=== PATIENT | male | born 1950 ===

== ENCOUNTER 2020-08-08 12:24 | Outpatient (REF) | payer MEDICARE, SELFPAY ==
[2020-08-08 13:38] LABS: Alanine Aminotransferase 45 U/L (0-40); Anion Gap 13 (12-20); Aspartate Amino Transferase 45 U/L (5-37); Blood Urea Nitrogen 17 mg/dL (9-16); Calcium 9.4 mg/dL (8.4-10.2); Carbon Dioxide 28 mmol/L (22-29); Chloride 100 mmol/L (96-108); Cholesterol 136 mg/dL; Estimated Glomerular Filt Rate 52; Glucose Random 112 mg/dL (60-115); HDL Cholesterol 59 mg/dL; LDL Cholesterol Calculated 50 mg/dl; Potassium 4.6 mmol/l (3.3-5.1); Sodium 136 mmol/L (135-145); Triglycerides 136 mg/dL
== END 2020-08-08 12:25 | disposition home or self-care (01) ==
LOC: HO.LAB 12:24
PROVIDERS: Visit Provider Internal Medicine
DX: E78.5 Hyperlipidemia, unspecified (principal); I25.10 Atherosclerotic heart disease of native coronary artery without angina pectoris; I10 Essential (primary) hypertension
CPT/HCPCS: 80048; 80061; 84450; 84460

== ENCOUNTER 2021-02-20 10:57 | Outpatient (REF) | payer MEDICARE, SELFPAY ==
[2021-02-20 14:53] LABS: Alanine Aminotransferase 42 U/L (0-40); Anion Gap 14 (12-20); Aspartate Amino Transferase 46 U/L (5-37); Blood Urea Nitrogen 14 mg/dL (9-16); Calcium 9.4 mg/dL (8.4-10.2); Carbon Dioxide 23 mmol/L (22-29); Chloride 105 mmol/L (96-108); Cholesterol 125 mg/dL; Estimated Glomerular Filt Rate 54; Glucose Fasting 103 mg/dL (60-99); HDL Cholesterol 53 mg/dL; LDL Cholesterol Calculated 51 mg/dl; Potassium 4.7 mmol/L (3.3-5.1); Sodium 137 mmol/L (135-145); Triglycerides 109 mg/dL
== END 2021-02-20 10:58 | disposition home or self-care (01) ==
LOC: HO.HMGCLDS 10:57
PROVIDERS: PCP Internal Medicine; Visit Provider Internal Medicine
DX: E78.5 Hyperlipidemia, unspecified (principal); I10 Essential (primary) hypertension
CPT/HCPCS: 36415; 80048; 80061; 84450; 84460

== ENCOUNTER 2021-09-04 12:59 | Outpatient (REF) | payer MEDICARE, SELFPAY ==
[2021-09-04 13:35] LABS: MANUAL DIFF FLAG NO
[2021-09-04 14:35] LABS: Basophils Percent Auto 0.4 % (0-2); Eosinophils Absolute Auto 0.3 X10*3/uL (0.0-0.4); Eosinophils Percent Auto 3.7 % (0-4); Hematocrit 42.3 % (42.0-52.0); Hemoglobin 14.3 g/dl (14.0-18.0); Imm Gran Abs Auto 0.01 X10*3/uL (0.00-0.03); Imm Gran Pct Auto 0.1 % (0.0-0.4); Lymphocytes Absolute Auto 1.9 X10*3/uL (1.2-4.9); Lymphocytes Percent Auto 27.5 % (20-40); Mean Corpuscular HGB Conc 33.8 g/dl (31.0-36.0); Mean Corpuscular Hemoglobin 30.6 pg (27.0-33.0); Mean Corpuscular Volume 90.6 fL (80.0-98.0); Mean Platelet Volume 10.5 fL (9.4-12.4); Monocytes Absolute Auto 0.8 X10*3/uL (0.1-1.2); Neutrophils Absolute Auto 3.8 x10*3/uL (2.0-8.3); Neutrophils Percent Auto 56.3 % (45-73); Platelet Count 254 X10*3/uL (160-400); Red Blood Count 4.67 X10*6/uL (4.60-5.80); Red Cell Distribution Width 13.6 % (11.0-16.0); White Blood Count 6.8 X10*3/uL (4.8-10.8)
[2021-09-04 15:04] LABS: Alanine Aminotransferase 28 U/L (0-40); Anion Gap 11 (12-20); Aspartate Amino Transferase 35 U/L (5-37); Blood Urea Nitrogen 14 mg/dL (9-16); Calcium 9.3 mg/dL (8.4-10.2); Carbon Dioxide 26 mmol/L (22-29); Chloride 104 mmol/L (96-108); Cholesterol 131 mg/dL; Estimated Glomerular Filt Rate 56; Glucose Fasting 107 mg/dL (60-99); HDL Cholesterol 51 mg/dL; LDL Cholesterol Calculated 59 mg/dl; Potassium 4.3 mmol/L (3.3-5.1); Sodium 137 mmol/L (135-145); Triglycerides 108 mg/dL
== END 2021-09-04 13:00 | disposition home or self-care (01) ==
LOC: HO.LAB 12:59
PROVIDERS: PCP Internal Medicine; Visit Provider Internal Medicine
DX: E78.5 Hyperlipidemia, unspecified (principal); I10 Essential (primary) hypertension; D12.6 Benign neoplasm of colon, unspecified
CPT/HCPCS: 36415; 80048; 80061; 84450; 84460; 85025

== ENCOUNTER 2022-03-26 13:21 | Outpatient (REF) | payer MEDICARE, SELFPAY ==
[2022-03-26 14:36] LABS: Alanine Aminotransferase 27 U/L (0-40); Anion Gap 11 (12-20); Aspartate Amino Transferase 33 U/L (5-37); Blood Urea Nitrogen 17 mg/dL (9-16); Calcium 9.1 mg/dL (8.4-10.2); Carbon Dioxide 24 mmol/L (22-29); Chloride 104 mmol/L (96-108); Cholesterol 107 mg/dL; Estimated Glomerular Filt Rate 53; Glucose Fasting 110 mg/dL (60-99); HDL Cholesterol 49 mg/dL; LDL Cholesterol Calculated 44 mg/dl; Potassium 4.3 mmol/L (3.3-5.1); Sodium 135 mmol/L (135-145); Triglycerides 72 mg/dL
== END 2022-03-26 13:22 | disposition home or self-care (01) ==
LOC: HO.LAB 13:21
PROVIDERS: PCP Internal Medicine; Visit Provider Internal Medicine
DX: I25.2 Old myocardial infarction (principal); I25.10 Atherosclerotic heart disease of native coronary artery without angina pectoris; I10 Essential (primary) hypertension; E78.5 Hyperlipidemia, unspecified; R73.01 Impaired fasting glucose; Z95.5 Presence of coronary angioplasty implant and graft
CPT/HCPCS: 36415; 80048; 80061; 84450; 84460

== ENCOUNTER 2022-07-30 12:33 | Outpatient (REF) | payer MEDICARE, SELFPAY ==
[2022-07-30 12:51] LABS: MANUAL DIFF FLAG NO
[2022-07-30 13:39] LABS: Basophils Percent Auto 0.6 % (0-2); Eosinophils Absolute Auto 0.2 X10*3/uL (0.0-0.4); Eosinophils Percent Auto 2.2 % (0-4); Hemoglobin 13.3 g/dl (14.0-18.0); Imm Gran Abs Auto 0.02 X10*3/uL (0.00-0.03); Imm Gran Pct Auto 0.3 % (0.0-0.4); Lymphocytes Absolute Auto 1.2 X10*3/uL (1.2-4.9); Lymphocytes Percent Auto 18.3 % (20-40); Mean Corpuscular Hemoglobin 31.4 pg (27.0-33.0); Mean Corpuscular Volume 89.8 fL (80.0-98.0); Mean Platelet Volume 9.2 fL (9.4-12.4); Monocytes Absolute Auto 0.8 X10*3/uL (0.1-1.2); Monocytes Percent Auto 12.5 % (2-11); Neutrophils Absolute Auto 4.4 x10*3/uL (2.0-8.3); Neutrophils Percent Auto 66.1 % (45-73); Platelet Count 283 X10*3/uL (160-400); Red Blood Count 4.23 X10*6/uL (4.60-5.80); Red Cell Distribution Width 13.4 % (11.0-16.0); White Blood Count 6.7 X10*3/uL (4.8-10.8)
[2022-07-30 14:41] LABS: Estimated Average Glucose 111 mg/dL; Hemoglobin A1c % 5.5 %
[2022-07-30 14:45] LABS: Alanine Aminotransferase 37 U/L (0-40); Anion Gap 17 (12-20); Aspartate Amino Transferase 41 U/L (5-37); Blood Urea Nitrogen 20 mg/dL (9-16); Carbon Dioxide 24 mmol/L (22-29); Chloride 94 mmol/L (96-108); Cholesterol 154 mg/dL; Estimated Glomerular Filt Rate 44; Glucose Fasting 118 mg/dL (60-99); HDL Cholesterol 75 mg/dL; LDL Cholesterol Calculated 62 mg/dl; Potassium 5.1 mmol/L (3.3-5.1); Sodium 130 mmol/L (135-145); Triglycerides 86 mg/dL
== END 2022-07-30 12:34 | disposition home or self-care (01) ==
LOC: HO.LAB 12:33
PROVIDERS: Visit Provider Internal Medicine
DX: D12.6 Benign neoplasm of colon, unspecified (principal); I48.0 Paroxysmal atrial fibrillation; E78.5 Hyperlipidemia, unspecified; I10 Essential (primary) hypertension; R73.01 Impaired fasting glucose; K21.9 Gastro-esophageal reflux disease without esophagitis; I25.10 Atherosclerotic heart disease of native coronary artery without angina pectoris
CPT/HCPCS: 36415; 80048; 80061; 83036; 84450; 84460; 85025

== ENCOUNTER 2022-08-29 11:49 | Outpatient (REF) | payer MEDICARE, SELFPAY ==
[2022-08-29 15:03] LABS: Alanine Aminotransferase 17 U/L (0-40); Anion Gap 13 (12-20); Aspartate Amino Transferase 24 U/L (5-37); Blood Urea Nitrogen 11 mg/dL (9-16); Calcium 9.7 mg/dL (8.4-10.2); Carbon Dioxide 26 mmol/L (22-29); Chloride 105 mmol/L (96-108); Estimated Glomerular Filt Rate 51; Glucose Fasting 106 mg/dL (60-99); Potassium 4.7 mmol/L (3.3-5.1); Sodium 139 mmol/L (135-145)
== END 2022-08-29 11:50 | disposition home or self-care (01) ==
LOC: HO.LAB 11:49
PROVIDERS: PCP Internal Medicine; Visit Provider Internal Medicine
DX: E87.1 Hypo-osmolality and hyponatremia (principal); I10 Essential (primary) hypertension
CPT/HCPCS: 36415; 80048; 84450; 84460

== ENCOUNTER 2022-11-23 10:55 | Outpatient (REF) | payer MEDICARE, SELFPAY ==
[2022-11-23 11:14] LABS: MANUAL DIFF FLAG NO
[2022-11-23 12:11] LABS: Basophils Absolute Auto 0.1 X10*3/uL (0.0-0.2); Basophils Percent Auto 0.7 % (0-2); Eosinophils Absolute Auto 0.3 X10*3/uL (0.0-0.4); Eosinophils Percent Auto 3.4 % (0-4); Hematocrit 40.5 % (42.0-52.0); Hemoglobin 14.3 g/dl (14.0-18.0); Imm Gran Abs Auto 0.02 X10*3/uL (0.00-0.03); Imm Gran Pct Auto 0.3 % (0.0-0.4); Lymphocytes Absolute Auto 2.1 X10*3/uL (1.2-4.9); Lymphocytes Percent Auto 27.6 % (20-40); Mean Corpuscular HGB Conc 35.3 g/dl (31.0-36.0); Mean Corpuscular Hemoglobin 31.6 pg (27.0-33.0); Mean Corpuscular Volume 89.4 fL (80.0-98.0); Mean Platelet Volume 9.7 fL (9.4-12.4); Monocytes Absolute Auto 0.7 X10*3/uL (0.1-1.2); Monocytes Percent Auto 9.2 % (2-11); Neutrophils Absolute Auto 4.4 x10*3/uL (2.0-8.3); Neutrophils Percent Auto 58.8 % (45-73); Platelet Count 291 X10*3/uL (160-400); Red Blood Count 4.53 X10*6/uL (4.60-5.80); Red Cell Distribution Width 13.5 % (11.0-16.0); White Blood Count 7.4 X10*3/uL (4.8-10.8)
[2022-11-23 13:25] LABS: Alanine Aminotransferase 21 U/L (0-40); Anion Gap 15 (12-20); Aspartate Amino Transferase 32 U/L (5-37); Blood Urea Nitrogen 13 mg/dL (9-16); Carbon Dioxide 22 mmol/L (22-29); Chloride 102 mmol/L (96-108); Cholesterol 145 mg/dL; Estimated Glomerular Filt Rate 47; Glucose Fasting 108 mg/dL (60-99); HDL Cholesterol 61 mg/dL; LDL Cholesterol Calculated 62 mg/dl; Potassium 4.5 mmol/L (3.3-5.1); Sodium 134 mmol/L (135-145); Triglycerides 112 mg/dL
== END 2022-11-23 10:56 | disposition home or self-care (01) ==
LOC: HO.LAB 10:55
PROVIDERS: PCP Internal Medicine; Visit Provider Internal Medicine
DX: E78.5 Hyperlipidemia, unspecified (principal); I10 Essential (primary) hypertension; I25.10 Atherosclerotic heart disease of native coronary artery without angina pectoris; I48.0 Paroxysmal atrial fibrillation; K21.9 Gastro-esophageal reflux disease without esophagitis; R73.01 Impaired fasting glucose; Z87.898 Personal history of other specified conditions; Z92.29 Personal history of other drug therapy
CPT/HCPCS: 36415; 80048; 80061; 84450; 84460; 85025

== ENCOUNTER → 2023-01-07 13:46 | Outpatient (BNVA) | payer MEDICARE, SELFPAY | PROVIDERS: PCP Internal Medicine; Visit Provider Urology | DX: N40.1 Benign prostatic hyperplasia with lower urinary tract symptoms (principal); N13.8 Other obstructive and reflux uropathy; R35.1 Nocturia; Z12.5 Encounter for screening for malignant neoplasm of prostate; Z79.82 Long term (current) use of aspirin | CPT/HCPCS: 51798; 99202 ==

== ENCOUNTER 2023-01-16 11:15 | Outpatient (REF) | payer MEDICARE, SELFPAY ==
--- NOTE | ~2023-01-16 | US_ITS ---
EXAMINATION: US RETROPERITONEAL COMPLETE (RENAL) CLINICAL INFORMATION: Nocturia. COMPARISON: Ultrasound abdomen complete 08/03/2014. TECHNIQUE: Real-time imaging of the kidneys and bladder. FINDINGS: RIGHT KIDNEY: 11.6 x 5.0 x 5.6 cm (SAG x AP x TRV). The kidney is normal in size, contour, and echogenicity. Renal cortical thickness is normal. No calculi or focal parenchymal lesions. No hydronephrosis. LEFT KIDNEY: 12.3 x 4.9 x 6.5 cm (SAG x AP x TRV). The kidney is normal in size, contour, and echogenicity. Renal cortical thickness is normal. No calculi or focal parenchymal lesions. No hydronephrosis. BLADDER: Well distended and normal. Bilateral ureteral jets are demonstrated. Prevoid bladder volume is 194 mL. Postvoid bladder volume is 12 mL. The prostate volume is 42 mL. Dystrophic prostatic calcifications. US/US retroperitoneal comp IMPRESSION: Unremarkable sonographic appearance of the kidneys. Prostate is mildly enlarged.
== END 2023-01-16 11:16 | disposition home or self-care (01) ==
LOC: HO.HMGCX 11:15
PROVIDERS: PCP Internal Medicine; Visit Provider Urology
DX: R35.1 Nocturia (principal)
CPT/HCPCS: 76770

== ENCOUNTER 2023-02-20 12:35 | Outpatient (REF) | payer MEDICARE, SELFPAY ==
[2023-02-20 14:03] LABS: Cholesterol 138 mg/dL; HDL Cholesterol 62 mg/dL; LDL Cholesterol Calculated 63 mg/dl; Triglycerides 69 mg/dL
[2023-02-20 14:04] LABS: B Type Natriuretic Peptide 240 pg/mL (<100)
[2023-03-01 21:17] LABS: PSA, Ultra Sensitive 0.91 ng/mL
== END 2023-02-20 12:36 | disposition home or self-care (01) ==
LOC: HO.LAB 12:35
PROVIDERS: Absent Provider Internal Medicine Cardiovascular Disease; PCP Internal Medicine; Visit Provider Urology
DX: I25.118 Atherosclerotic heart disease of native coronary artery with other forms of angina pectoris (principal); Z12.5 Encounter for screening for malignant neoplasm of prostate
CPT/HCPCS: 36415; 80061; 83880; 84153

== ENCOUNTER 2023-02-21 13:25 | Outpatient (AMB) | payer MEDICARE, SELFPAY ==
--- NOTE | 2023-02-21 13:33 | A.OFFVIS_ITS ---
Intake Intake Visit Reasons: 6w/cysto/US(?) Intake Note: pt presents to the office today for a 6 week follow-up/cysto. Urinalysis done. Allergies No Known Allergies Allergy (Verified 02/21/23 13:33) Medication List - Last Reconciled 02/21/23 by Juhi Orona MD amlodipine 5 mg PO DAILY aspirin (Adult Low Dose Aspirin) 81 mg PO DAILY atorvastatin 80 mg PO DAILY 90 days carvedilol 25 mg PO BID clopidogrel 75 mg PO DAILY coenzyme Q10 (CoQ-10) 100 mg PO DAILY lisinopril 30 mg PO DAILY pantoprazole 40 mg PO DAILY tamsulosin (Flomax) 0.4 mg PO BID HPI HPI Comments History of Present Illness Details Brayden is a 72-year-old male patient who presents to the office for cystoscopy procedure. LV--01/07/23--Brayden is a 72-year-old male who presents to the office as a new patient evaluation for symptoms of nocturia. The patient is a 70-year-old male who was sent by his PCP for evaluation of nocturia. He has LUTS of spraying of urine, urinary urgency, and frequency. Denies blood in the urine I have reviewed the chart and his last PSA blood work in 2019 was reviewed. He states that he had more recent PSA blood work done at his PCP's office. We will contact his PCP office for updated PSA results. We discussed trial of alpha saturnino- alfuzosin 10 mg QD. 02/21/23-- HPI as above: The patient was taking alfuzosin 10 mg without any benefits. States no improvement in spraying of urine and other reported urinary symptoms. Evaluation today-- Blood: negative, leukocytes: negative. Cystoscopy findings-- minimal narrowing of the bulbous urethra proximally but no dense stricture visualized, enlargement of the lobes of the prostate. No evangelist picious bladder lesion visualized. Plan: Flomax 0.4 mg BID was ordered. Discontinue alfuzosin 10 mg. Follow-up after 3 months. COUNTS INCLUDE 234 BEDS AT THE [facility] Medical History Coronary artery disease Essential hypertension GERD (gastroesophageal reflux disease) History of [place] (myocardial infarction) History of syncope Hyperlipidemia LDL goal <70 Impaired fasting glucose Nocturia Paroxysmal atrial fibrillation Right bundle branch block (RBBB) with left anterior fascicular block Tubular adenoma of colon Surgical History (Updated 04/16/23 @ 10:47 by Isabel Russell RN) H/O heart artery stent History of discectomy Hx of colonoscopy Hx of wisdom tooth extraction Family History Mother Essential hypertension History of myocardial infarction Father Substance use disorder Sister Substance use disorder Social History Housing: House Alcohol intake: current Alcohol intake frequency: a few times a month Patient Tobacco Use Status: Former Tobacco user Years Smoked: 35 yrs e-Cigarette/Vaping Use: Never Used Are you DNR?: No Advance Directives: No Advance Directives Information Provided: Yes Current occupational status: retired Cognitive needs: No Hearing needs: No Vision needs: Yes Review of Systems Const All systems reviewed & are unremarkable except as noted in HPI and below Reports no additional complaints Eyes Reports no additional complaints ENT Denies neck pain Card Denies leg edema Resp Denies cough GI Denies constipation Musc Reports no additional complaints and Denies neck pain Skin/Breast Denies rash and Denies unusual bruising Neuro Reports no additional complaints Psych Reports no additional complaints Endo Reports no additional complaints Dirk/Lymph Reports no additional complaints Aller/Immun Reports no additional complaints Physical Exam Const General: healthy appearing, no acute distress and well developed Orientation/consciousness: patient oriented x3 HEENT Head: Yes normocephalic and Yes atraumatic Eyes Conjunctivae: conjunctivae normal Neck Neck: Yes normal visual inspection Chest Chest palpation & inspection: normal inspection of the chest Resp Effort & Inspection: normal respiratory effort Cardio Rate: regular rate GI Inspection: Yes normal to inspection Penis: normal penis Scrotum: scrotum normal Skin General skin exam: no rashes or lesions noted Neuro General: patient oriented x3 Extrem General: No pedal edema Psych Appearance: grossly normal Affect: normal affect Office Procedures Cystoscopy Consent Discussed risk and benefit or proposed procedure with the patient. Information consent for procedure given to the patient. Discussed technical aspects, risks, benefits and alternatives in full. Addressed all of the patient's questions and concerns regarding the procedure. The patient demonstrated knowledge and understanding. They wish to proceed with this procedure. Preparation The patient was prepped in the usual manner. A project estimator was present and in the room. Genitalia was prepped with betadine solution in a sterile manner. Lidocaine Jelly 2% was placed into the urethra and 16Fr flexible Olympus cystoscope was inserted into the meatus after adequate lubrication. Procedure Time out per protocol performed. Bladder Inspection Bladder Inspection: The bladder was inspected in its entirety with utilization retroflexion displaying: Tumor(s): none visualized Trabeculation: Mild/mod Mucosal Erthema: N/A Orifices: normal shape and position Urethra:see below Cystoscopy findings-- minimal narrowing of the bulbous urethra proximally and no dense stricture visualized, enlargement of the lobes of the prostate. No suspicious bladder lesion visualized. [id number] Procedure code (CPT) selection complete Office Meds lidocaine HCl Performing Provider: Juhi Orona MD Administered by: Yanni Zapien RN on 02/21/23 13:46 Dose Route Admin Location Lot Number Expiration Date [facility] Exhibits Manager 10 mL intra-urethral naproxen Performing Provider: Juhi Orona MD Administered by: Yanni Zapien RN on 02/21/23 13:46 Dose Route Admin Location Lot Number Expiration Date [place] Ex[employer] Manager 500 mg PO ciprofloxacin HCl Performing Provider: Juhi Orona MD Documented (not given) by: Yanni Zapien RN on 02/21/23 13:46 Dose Route Admin Location Lot Number Expiration Date [facility] Ex[employer] 500 mg PO Results AMB Urinalysis, Automated UA Leukoctes 0 Pieter/uL Last Edit by Shira Madison MA on 02/21/23 13:35 UA Nitrite Negative Last Edit by Shira Madison MA on 02/21/23 13:35 UA Urobilinogen 0.2 mg/dL Last Edit by Shira Madison MA on 02/21/23 13:35 UA Protein 0 mg/dL Last Edit by Shira Madison MA on 02/21/23 13:35 UA pH 6.0 Last Edit by Shira Madison MA on 02/21/23 13:35 UA Blood 0 Kimo/uL Last Edit by Shira Madison MA on 02/21/23 13:35 UA Specific [place] 1.010 Last Edit by Shira Madison MA on 02/21/23 13:35 UA Ketone Negative Last Edit by Shira Madison MA on 02/21/23 13:35 UA Bilirubin 0 mg/dL Last Edit by Shira Madison MA on 02/21/23 13:35 UA Glucose 0 mg/dL Last Edit by Shira Madison MA on 02/21/23 13:35 Results Reviewed Results Reviewed: Laboratory Last Values Urine pH (Auto) 6.0 02/21/23 13:34 Specific [place] (Auto) 1.010 02/21/23 13:34 Urine Protein (Auto) 0 mg/dL 02/21/23 13:34 Glucose (UA)(Auto) 0 mg/dL 02/21/23 13:34 Urine Ketones (Auto) Negative 02/21/23 13:34 Urine Blood (Auto) 0 Kimo/uL 02/21/23 13:34 Urine Nitrite (Auto) Negative 02/21/23 13:34 Urine Bilirubin (Auto) 0 mg/dL 02/21/23 13:34 Urine Urobilinogen (Auto) 0.2 mg/dL 02/21/23 13:34 Leukocyte Esterase (Auto) 0 Pieter/uL 02/21/23 13:34 Assessment & Plan Assessment & Plan (1) Nocturia: Code(s): R35.1 - Nocturia (2) BPH loc w urin obs/LUTS: Code(s): N40.1 - Benign prostatic hyperplasia with lower urinary tract symptoms (3) Weak urinary stream: Code(s): R39.12 - Poor urinary stream Plan Flomax 0.4 mg BID was ordered. Discontinue alfuzosin 10 mg. Follow-up after 3 months. Orders: Orders AMB Cystoscopy 02/21/23 R35.1 - Nocturia, Z12.5 - Encounter for screening for malignant neoplasm of prostate AMB Urinalysis Automated 02/21/23 Z13.9 - Encounter for screening, unspecified Medications: New ciprofloxacin HCl 500 mg PO ONCE 1 tab 0RF R35.1 - Nocturia, Z12.5 - Encounter for screening for malignant neoplasm of prostate tamsulosin (Flomax) flomax 2 times daily to replace alfuzosin 0.4 mg PO BID 60 caps 4RF Patient Instructions: The patient had an opportunity to ask questions regarding treatment plan. All questions were answered. Laboratory studies and physical exam results were discussed and reviewed in detail. No major barriers to understanding were identified. The patient expressed understanding and agreement with the above treatment plan. The patient is aware they should contact our office by phone for worsening of their current condition or the appearance of new symptoms. Compliance is encouraged with any medications and followup testing that is ordered. It is a privilege to be allowed the opportunity to participate in the urologic care of your patient. If you have any questions or concerns regarding treatment for the above conditions please do not hesitate to contact me. The office telephone contact is [phone]. This note is constructed in part using voice recognition software. While every effort has been made to ensure accuracy mill representative errors may have been included. Yours sincerely, Juhi Orona MD Coding Level of Care Code Est Pt Level 3 (52963) Diagnoses Nocturia R35.1 BPH loc w urin obs/LUTS N40.1 Weak urinary stream R39.12 CPT Codes Cystoscopy - CPT: 10007-[id number] ([id number])
== END 2023-02-21 14:13 | disposition home or self-care (01) ==
LOC: HO.HUSH 13:25
PROVIDERS: PCP Internal Medicine; Visit Provider Urology
DX: N40.1 Benign prostatic hyperplasia with lower urinary tract symptoms (principal); R35.1 Nocturia; R39.12 Poor urinary stream; Z12.5 Encounter for screening for malignant neoplasm of prostate
CPT/HCPCS: 52000; 99213

== ENCOUNTER → 2023-02-21 13:25 | Outpatient (BNVA) | payer MEDICARE, SELFPAY | PROVIDERS: PCP Internal Medicine; Visit Provider Urology | DX: N40.1 Benign prostatic hyperplasia with lower urinary tract symptoms (principal); R35.1 Nocturia; R39.12 Poor urinary stream | CPT/HCPCS: 52000; 99212 ==

== ENCOUNTER 2023-04-16 10:18 | Day surgery (SDC) | payer MEDICARE, SELFPAY ==
[2023-04-16 10:22] VITALS: BMI 30.1
[2023-04-16 10:26] VITALS: BMI 29.2
[2023-04-16 10:38] VITALS: BP 122/90; PULSE 68; RESP 20; TEMP 36.8; O2SAT 98
--- NOTE | 2023-04-16 10:58 | P.CONAN_ITS ---
HPI - Anesthesia Eval Consult details Narrative: Colonoscopy [facility] Active Problems Active Problems: All Active Problems (Updated 01/07/23 @ 14:29 by Kylah Bhagat) Screening PSA (prostate specific antigen) (Acute) BPH loc w urin obs/LUTS (Acute) Nocturia (Acute) History of syncope (Acute) Paroxysmal atrial fibrillation (Acute) Hyperlipidemia LDL goal <70 (Acute) Essential hypertension (Acute) Right bundle branch block (RBBB) with left anterior fascicular block (Acute) Impaired fasting glucose (Acute) GERD (gastroesophageal reflux disease) (Acute) History of [place] (myocardial infarction) (Acute) H/O heart artery stent (Acute) Coronary artery disease (Acute) Tubular adenoma of colon (Acute) Past Medical History Medical History Coronary artery disease Essential hypertension GERD (gastroesophageal reflux disease) History of [place] (myocardial infarction) History of syncope Hyperlipidemia LDL goal <70 Impaired fasting glucose Nocturia Paroxysmal atrial fibrillation Right bundle branch block (RBBB) with left anterior fascicular block Tubular adenoma of colon Family History Family History Mother Essential hypertension History of myocardial infarction Father Substance use disorder Sister Substance use disorder Family history of problems with anesthesia: No Surgical History Surgical History (Updated 04/16/23 @ 10:47 by Isabel Russell RN) H/O heart artery stent History of discectomy Hx of colonoscopy Hx of wisdom tooth extraction History of Problems with Anesthesia: No Social History Social History Housing: House Alcohol intake: current Alcohol intake frequency: a few times a month Patient Tobacco Use Status: Former Tobacco user Years Smoked: 35 yrs e-Cigarette/Vaping Use: Never Used Are you DNR?: No Advance Directives: No Advance Directives Information Provided: Yes Current occupational status: retired Cognitive needs: No Hearing needs: No Vision needs: Yes Meds Allergies Allergy/AdvReac Type Severity Reaction Status Date / Time No Known Allergies Allergy Verified 02/21/23 13:33 Home Medications Medication Instructions Recorded Confirmed Last Taken Type aspirin 81 mg tablet,delayed 81 mg PO DAILY 02/22/21 04/16/23 04/08/23 History release (Adult Low Dose Aspirin) coenzyme Q10 100 mg capsule 100 mg PO DAILY 02/22/21 04/16/23 04/08/23 History (CoQ-10) amlodipine 5 mg tablet 5 mg PO DAILY 03/29/22 04/16/23 04/16/23 History carvedilol 25 mg tablet 25 mg PO BID 03/29/22 04/16/23 04/16/23 History Exam Exam Date and Time: April 16, 2023 1058 Height,Weight and Vital Signs: Height 5 ft 9 in Weight 89.811 kg Last Vital Signs Temp 98.3 F 04/16/23 10:38 Pulse 68 04/16/23 10:38 Resp 20 04/16/23 10:38 BP 122/90 H 04/16/23 10:38 Pulse Ox 98 04/16/23 10:38 O2 Del Method Room Air 04/16/23 10:38 Airway Mallampati Class: II TM Dist: >3cm Neck ROM: Full Heart: rrr Lungs: cta Assessment and Plan Assessment Anesthesia Assessment: Anesthesia Plan Discussed and Chart Reviewed Final Anesthetic Review Family History of Problems with Anesthesia: No History of Problems with Anesthesia: No ASA Class: III Final Preanesthetic Review: No Changes in Pt Med Stat, Meds/Allgs Chart Reviewed, Consent Obtained/Reviewed and Anes Risks/Benef Reviewed Patient Risk: Intermediate Procedure Risk: Low Anesthetic Plan Anesthetic Plan: MAC: and Agree w/ Assess. and Plan Disposition: Standard PACU
[2023-04-16] MEDS: Lactated Ringers 1,000 ML 50 ML IVCONT (11:00)
--- NOTE | 2023-04-16 11:43 | MHC.SHP ---
Pre-Procedural Eval Section A Date of Service: 04/16/23 Section B Chief Complaint: screening Details of Present Illness: see H&P no changes Relevant Family History (Specify if Yes): No Relevant Social History: Tobacco Use Present Medications: see Short Stay Collaborative assessment Medical History: No relevant PMH History of Previous Operations: No relevant previous surgery Allergies: Allergies Allergy/AdvReac Type Severity Reaction Status Date / Time No Known Allergies Allergy Verified 02/21/23 13:33 Review of Systems Sugical H&P ROS: Negative: Constitution, Cardiovascular, Respiratory, Neurological, Psychiatric, Hem-Onc, Allergic/Immunologic, Gastrointestinal, Genitourinary, Musculoskeletal, Integumentary, Endocrine and Eyes/Ears/Nose/Throat Exam Surgical H&P Exam: Normal: HEENT, Normal: Heart, Normal: Lungs, Normal: Extremities, Normal: Abdomen, Normal: Skin and Normal: Neurological Plan Diagnosis/Plan: Unchanged I have reviewed the history and physical and performed a pertinent physical examination on my patient. No changes have occurred unless specified. Time Spent With Patient Time: Total time managing care of this patient today ____ minutes.
--- NOTE | 2023-04-16 12:19 | P.BOP_ITS ---
Brief Operative Note Date of Service: 04/16/23 Pre-op diagnosis: screening Post-op diagnosis: same Procedure: colonoscopy Surgeon: Guerrero Vizcarra Anesthesia: MAC Was an Java Application Engineer used for this Procedure?: No Estimated blood loss (mL): 2 Pathology: other Condition: stable Disposition: PACU
[2023-04-16 12:23] VITALS: BP 102/68; PULSE 64; RESP 18; TEMP 36.1; O2SAT 95
[2023-04-16 12:38] VITALS: BP 127/79; PULSE 58; RESP 16; TEMP 36.1; O2SAT 99
--- NOTE | 2023-04-16 13:06 | OP_ITS ---
DATE OF SERVICE: 04/16/2023 SURGEON: Guerrero Vizcarra MD INDICATIONS: Colon cancer screening. PREOPERATIVE DIAGNOSIS: POSTOPERATIVE DIAGNOSIS: PROCEDURE PERFORMED: Colonoscopy to the terminal ileum with biopsy. ESTIMATED BLOOD LOSS: COMPLICATIONS: ANESTHESIA: Monitored anesthesia care. ASSISTANTS: SPECIMENS: DESCRIPTION OF PROCEDURE: A history and physical was performed. The risks and benefits of the procedure were explained to the patient. Informed consent was obtained. The patient was placed in the left lateral decubitus position. A digital rectal exam was performed and was found to be normal. The Olympus pediatric video colonoscope was introduced into the rectum and advanced to the cecum without difficulty. The cecum was identified by transillumination, palpation, and identification of ileocecal valve. Examination was performed. The scope was removed. He tolerated the procedure well and was returned to the recovery area in stable condition. FINDINGS: The terminal ileum was normal. In the cecum right at the appendiceal orifice was a less than 5 mm sessile polyp, which was removed with a biopsy forceps. Two rectal polyps were removed with a biopsy forceps and a polyp at 80 cm measuring less than 5 mm was also removed with a biopsy forceps. Retroflexed examination showed some internal hemorrhoids. There was moderate sigmoid diverticulosis. IMPRESSION: Colon polyps. RECOMMENDATION: Follow up the biopsy results. MD OZZY Street/NADYAL / [id number]
== END 2023-04-16 13:50 | disposition home or self-care (01) ==
PROVIDERS: PCP Internal Medicine; Visit Provider Internal Medicine Gastroenterology
PROC: 0DJD8ZZ Inspection of Lower Intestinal Tract, Via Natural or Artificial Opening Endoscopic (ICD-10-PCS; CPT 45378; principal; 2023-04-16 11:20)
DX: Z12.11 Encounter for screening for malignant neoplasm of colon (principal); Z86.010 Personal history of colon polyps; K63.5 Polyp of colon; K62.1 Rectal polyp; K57.30 Diverticulosis of large intestine without perforation or abscess without bleeding; K64.8 Other hemorrhoids; I10 Essential (primary) hypertension; I45.2 Bifascicular block; I25.2 Old myocardial infarction; I48.0 Paroxysmal atrial fibrillation; I25.10 Atherosclerotic heart disease of native coronary artery without angina pectoris; Z95.5 Presence of coronary angioplasty implant and graft; E78.5 Hyperlipidemia, unspecified; R73.01 Impaired fasting glucose; Z79.82 Long term (current) use of aspirin; Z79.899 Other long term (current) drug therapy; Z87.891 Personal history of nicotine dependence
CPT/HCPCS: 45380; 88305

== ENCOUNTER 2023-05-27 11:29 | Outpatient (AMB) | payer MEDICARE, SELFPAY ==
--- NOTE | 2023-05-27 11:25 | A.OFFVIS_ITS ---
Intake Intake Visit Reasons: 14w/BPH Intake Note: Patient presents today for a follow-up on BPH: Meds- Tamsulosin Allergies to Antibiotic- No Known Allergies Blood Thinner- Aspirin PVR- 0 mL Toe Former Stitchdowns Required: No Allergies No Known Allergies Allergy (Verified 02/21/23 13:33) Medication List - Last Reconciled 05/27/23 by Juhi Orona MD amlodipine 5 mg PO DAILY aspirin (Adult Low Dose Aspirin) 81 mg PO DAILY atorvastatin 80 mg PO DAILY 90 days carvedilol 25 mg PO BID clopidogrel 75 mg PO DAILY coenzyme Q10 (CoQ-10) 100 mg PO DAILY lisinopril 30 mg PO DAILY oxybutynin chloride 5 mg PO BEDTIME pantoprazole 40 mg PO DAILY tamsulosin (Flomax) 0.4 mg PO BID HPI HPI Comments History of Present Illness Details Brayden is a 72-year-old male who presents today to the office for a fol low-up. 05/27/2023? He is followed today for benign prostatic hyperplasia and LUTS frequency. He was last seen by me on 02/21/2023 - cystoscopy was performed- findings minimal narrowing of the bulbous urethra proximally but no dense stricture visualized, enlargement of the lobes of the prostate. No suspicious bladder lesion visualized.? ? Flomax 0.4 mg BID was ordered, and the patient was advised to discontinue alfuzosin 10 mg at that time. He was advised to follow-up after 3 months. He states that he is waking up every hour to urinate at night. He still has intermittent spraying of urine. Denies daytime urinary frequency, I reviewed the PSA results from 02/20/2023 revealed 0.91 ng/mL. I reviewed the renal US results from 01/16/2023 revealed both the kidneys were normal, no stones or hydronephrosis. Estimated prostate volume was 42 mL, and prostate calcification was visualized. 05/27/2023: Evaluation ?UA? leukocytes: 15 Pieter; blood: negative; bladder scan PVR: 0 mL. Review of charts: Last visit: 03/13/2023? OV--01/07/23--Brayden is a 72-year-old male who presents to the office as a new patient evaluation for symptoms of nocturia. The patient is a 70-year-old male who was sent by his PCP for evaluation of nocturia. He has LUTS of spraying of urine, urinary urgency, and frequency. Denies blood in the urine I have reviewed the chart and his last PSA blood work in 2019 was reviewed. He states that he had more recent PSA blood work done at his PCP's office. We will contact his PCP office for updated PSA results. We discussed trial of alpha saturnino- alfuzosin 10 mg QD. OV-02/21/23--? HPI as above:? The patient was taking alfuzosin 10 mg without any benefits.? States no improvement in spraying of urine and other reported urinary symptoms.? Evaluation today-- Blood: negative, leukocytes: negative. Cystoscopy findings-- minimal narrowing of the bulbous urethra proximally but no dense stricture visualized, enlargement of the lobes of the prostate. No suspicious bladder lesion visualized.? ? 05/27/2023: Plan: Nocturia: Pt states he snores. Consideration for Sleep Apnea contributing to nocturia. I will refer him for sleep study. Will start him on Oxybutynin 5 mg in the evening. Cont Flomax bid Follow up Tele-health in 3 months. Follow up in one year, PSA prior. [facility] Medical History Nocturia History of syncope Paroxysmal atrial fibrillation Hyperlipidemia LDL goal <70 Essential hypertension Right bundle branch block (RBBB) with left anterior fascicular block Impaired fasting glucose GERD (gastroesophageal reflux disease) History of [place] (myocardial infarction) Coronary artery disease Tubular adenoma of colon Surgical History Hx of wisdom tooth extraction Hx of colonoscopy H/O heart artery stent History of discectomy Family History Mother Essential hypertension History of myocardial infarction Father Substance use disorder Sister Substance use disorder Social History Housing: House Alcohol intake: current Alcohol intake frequency: a few times a month Patient Tobacco Use Status: Former Tobacco user Years Smoked: 35 yrs e-Cigarette/Vaping Use: Never Used Current occupational status: retired Cognitive needs: No Hearing needs: No Vision needs: Yes Review of Systems Const All systems reviewed & are unremarkable except as noted in HPI and below Reports no additional complaints Eyes Reports no additional complaints ENT Denies neck pain Card Denies leg edema Resp Denies cough GI Denies constipation Musc Reports no additional complaints and Denies neck pain Skin/Breast Denies rash and Denies unusual bruising Neuro Reports no additional complaints Psych Reports no additional complaints Endo Reports no additional complaints Dirk/Lymph Reports no additional complaints Aller/Immun Reports no additional complaints Physical Exam Const General: healthy appearing, no acute distress and well developed Orientation/consciousness: patient oriented x3 HEENT Head: Yes normocephalic and Yes atraumatic Eyes Conjunctivae: conjunctivae normal Neck Neck: Yes normal visual inspection Chest Chest palpation & inspection: normal inspection of the chest Resp Effort & Inspection: normal respiratory effort Cardio Rate: regular rate GI Inspection: Yes normal to inspection Neuro General: patient oriented x3 Psych Appearance: grossly normal Affect: normal affect Results AMB Urinalysis, Automated UA Leukoctes 100 Pieter/uL Last Edit by ALY Walker on 05/27/23 11:46 15 Pieter/uL Taryn Rivas 05/27/23 11:46 UA Nitrite Negative Last Edit by ALY Walker on 05/27/23 11:46 UA Urobilinogen 100 mg/dL Last Edit by ALY Walker on 05/27/23 11:4 6 1 mg/dL Taryn Rivas 05/27/23 11:46 UA Protein 100 mg/dL Last Edit by ALY Walker on 05/27/23 11:46 30 mg/dL Taryn Rivas 05/27/23 11:46 UA pH 6.0 Last Edit by ALY Walker on 05/27/23 11:46 UA Blood 0 Kimo/uL Last Edit by ALY Walker on 05/27/23 11:46 UA Specific [place] 1.020 Last Edit by ALY Walker on 05/27/23 11: 46 UA Ketone Positive Last Edit by ALY Walker on 05/27/23 11:46 5 mg/dL Taryn Rivas 05/27/23 11:46 UA Bilirubin 100 mg/dL Last Edit by ALY Walker on 05/27/23 11:46 1 mg/dL Taryn Rivas 05/27/23 11:46 UA Glucose 0 mg/dL Last Edit by ALY Walker on 05/27/23 11:46 Results Reviewed Results Reviewed: Laboratory Last Values Urine pH (Auto) 6.0 05/27/23 11:43 Specific [place] (Auto) 1.020 05/27/23 11:43 Urine Protein (Auto) 100 mg/dL 05/27/23 11:43 Glucose (UA)(Auto) 0 mg/dL 05/27/23 11:43 Urine Ketones (Auto) Positive 05/27/23 11:43 Urine Blood (Auto) 0 Kimo/uL 05/27/23 11:43 Urine Nitrite (Auto) Negative 05/27/23 11:43 Urine Bilirubin (Auto) 100 mg/dL 05/27/23 11:43 Urine Urobilinogen (Auto) 100 mg/dL 05/27/23 11:43 Leukocyte Esterase (Auto) 100 Pieter/uL 05/27/23 11:43 01/16/2023 EXAMINATION: US RETROPERITONEAL COMPLETE (RENAL) CLINICAL INFORMATION: Nocturia. COMPARISON: Ultrasound abdomen complete 08/03/2014. FINDINGS: RIGHT KIDNEY: 11.6 x 5.0 x 5.6 cm (SAG x AP x TRV). The kidney is normal in size, contour, and echogenicity. Renal cortical thickness is normal. No calculi or focal parenchymal lesions. No hydronephrosis. LEFT KIDNEY: 12.3 x 4.9 x 6.5 cm (SAG x AP x TRV). The kidney is normal in size, contour, and echogenicity. Renal cortical thickness is normal. No calculi or focal parenchymal lesions. No hydronephrosis. BLADDER: Well distended and normal. Bilateral ureteral jets are demonstrated. Prevoid bladder volume is 194 mL. Postvoid bladder volume is 12 mL. The prostate volume is 42 mL. Dystrophic prostatic calcifications. IMPRESSION: Unremarkable sonographic appearance of the kidneys. Prostate is mildly enlarged. Assessment & Plan Assessment & Plan (1) Nocturia: Code(s): R35.1 - Nocturia (2) BPH loc w urin obs/LUTS: Code(s): N40.1 - Benign prostatic hyperplasia with lower urinary tract symptoms (3) Urethral stricture: Code(s): N35.919 - Unspecified urethral stricture, male, unspecified site Plan Nocturia: Pt states he snores. Consideration for Sleep Apnea contributing to nocturia. I will refer him for sleep study. Will start him on Oxybutynin 5 mg in the evening. Cont Flomax bid Follow up Tele-health in 3 months. Follow up in one year, PSA prior. Orders: Orders AMB Urinalysis Automated Today Z13.9 - Encounter for screening, unspecified AMB Post Void Residual by ultrasound Today N39.8 - Other specified disorders of urinary system Medications: New oxybutynin chloride 5 mg PO BEDTIME 90 tabs 0RF bladder spasms Refilled tamsulosin (Flomax) flomax 2 times daily to replace alfuzosin 0.4 mg PO BID 60 caps 4RF Patient Instructions: The patient had an opportunity to ask questions regarding treatment plan. All questions were answered. Imaging, Laboratory studies and physical exam results were discussed and reviewed in detail. No major barriers to understanding were identified. The patient expressed understanding and agreement with the above treatment plan.? ? ? The patient is aware they should contact our office by phone for worsening of their current condition or the appearance of new symptoms. Compliance is encouraged with any medications and followup testing that is ordered.? ? ? It is a privilege to be allowed the opportunity to participate in the urologic care of your patient. If you have any questions or concerns regarding treatment for the above conditions please do not hesitate to contact me. The office telephone contact is [phone].? ? ? This note is constructed in part using voice recognition software. While every effort has been made to ensure accuracy senior medical transcriptionist errors may have been included.? ? ? Yours sincerely,? ? ? Juhi Orona MD? ? ? Coding Level of Care Code Est Pt Level 4 (13111) Diagnoses Nocturia R35.1 BPH loc w urin obs/LUTS N40.1 Urethral stricture N35.919
== END 2023-05-27 11:58 | disposition home or self-care (01) ==
PROVIDERS: PCP Internal Medicine; Visit Provider Urology
DX: N40.1 Benign prostatic hyperplasia with lower urinary tract symptoms (principal); R35.1 Nocturia; N35.919 Unspecified urethral stricture, male, unspecified site
CPT/HCPCS: 99214

== ENCOUNTER → 2023-05-27 11:29 | Outpatient (BNVA) | payer MEDICARE, SELFPAY | PROVIDERS: PCP Internal Medicine; Visit Provider Urology | DX: N40.1 Benign prostatic hyperplasia with lower urinary tract symptoms (principal); N13.8 Other obstructive and reflux uropathy; R35.1 Nocturia; N35.919 Unspecified urethral stricture, male, unspecified site; Z79.899 Other long term (current) drug therapy | CPT/HCPCS: 81003; 99212 ==

== ENCOUNTER 2024-01-23 12:52 | Outpatient (REF) | payer MEDICARE, SELFPAY ==
[2024-01-23 14:11] LABS: Estimated Average Glucose 111 mg/dL; Hemoglobin A1c % 5.5 % (<6.0)
[2024-01-23 14:35] LABS: Alanine Aminotransferase 23 U/L (0-40); Anion Gap 16 (12-20); Aspartate Amino Transferase 29 U/L (5-37); Blood Urea Nitrogen 14 mg/dL (9-16); Calcium 9.6 mg/dL (8.4-10.2); Carbon Dioxide 24 mmol/L (22-29); Chloride 100 mmol/L (96-108); Cholesterol 130 mg/dL (<200); Estimated Glomerular Filt Rate 50; Glucose Fasting 102 mg/dL (60-99); HDL Cholesterol 65 mg/dL (>40); LDL Cholesterol Calculated 56 mg/dL (<100); Potassium 3.5 mmol/L (3.3-5.1); Sodium 136 mmol/L (135-145); Triglycerides 46 mg/dL (<150)
[2024-01-23 14:50] LABS: Vitamin D 25-OH Total 29.3 ng/mL (>30)
== END 2024-01-23 12:53 | disposition home or self-care (01) ==
LOC: HO.LAB 12:52
PROVIDERS: PCP Internal Medicine; Visit Provider Internal Medicine
DX: I10 Essential (primary) hypertension (principal); R73.01 Impaired fasting glucose; I25.10 Atherosclerotic heart disease of native coronary artery without angina pectoris; E78.5 Hyperlipidemia, unspecified
CPT/HCPCS: 36415; 80048; 80061; 82306; 83036; 84450; 84460

== ENCOUNTER 2024-02-05 10:28 | Outpatient (AMB) | payer MEDICARE, SELFPAY ==
--- NOTE | 2024-02-05 10:30 | MHC.PC.OV ---
Vital Signs 02/05/24 10:31 02/05/24 11:19 Height 5 ft 9 in Weight 195 lb BMI 28.8 BP 102/66 Blood Pressure Location Lt brachial Position Sitting Pulse 64 64 Pulse Source Pulse Oximeter Auscultation Pulse Oximetry (%) 97 Oxygen Delivery Method Room Air Intake Visit Reasons: HDF [facility] Intake Note: Pt is here today for his [facility]F [facility] Allergies No Known Allergies Allergy (Verified 02/05/24 10:57) Medication List - Last Reconciled 02/05/24 by TANA Jimenez amlodipine 5 mg PO DAILY aspirin (Adult Low Dose Aspirin) 81 mg PO DAILY atorvastatin 80 mg PO DAILY 90 days carvedilol 25 mg PO BID clopidogrel 75 mg PO DAILY pantoprazole 40 mg PO DAILY tamsulosin (Flomax) 0.4 mg PO BID Tobacco use date assessed: 02/05/24 Fall risk assessment: No Falls in past year Last assessed Fall Risk: 02/05/24 Dental Screening Dental Screen Date: 02/05/24 Did you have a dental visit in the last 12 months?: No Was dental information given to patient?: Patient declined HPI HPI Comments History of Present Illness Details Patient is a 73-year-old male in today following a hospital discharge 2 months prior. He has a past medical history significant for BPH, dyslipidemia, gastroenteritis, hypertension, history of [place], history of TIA, CAD, and proximal AFib. Patient presented to the emergency room with symptoms of diarrhea and weakness. Patient was found to have FABIENNE due to hypotension/hypovolemia. His lisinopril was stopped, creatinine levels brought down to baseline and was discharged with directions to completely discontinue his lisinopril. Patients had labs drawn prior to this visit. Patient has normal electrolytes, slightly diminished vitamin-D levels, slightly elevated fasting blood sugar. Patient's kidney values have improved from previous blood draw. He has a chief complaint of right-sided inguinal pain gets worse when he feels like his bladder is full. States the pain has been active for 3-4 days. Has not utilized any medication for relief. [facility] Medical History Nocturia History of syncope Paroxysmal atrial fibrillation Hyperlipidemia LDL goal <70 Essential hypertension Right bundle branch block (RBBB) with left anterior fascicular block Impaired fasting glucose GERD (gastroesophageal reflux disease) History of [place] (myocardial infarction) Coronary artery disease Tubular adenoma of colon Surgical History Hx of wisdom tooth extraction Hx of colonoscopy H/O heart artery stent History of discectomy Family History Mother Essential hypertension History of myocardial infarction Father Substance use disorder Sister Substance use disorder Social History Housing: House Alcohol intake: current Alcohol intake frequency: a few times a month Patient Tobacco Use Status: Former Tobacco user Years Smoked: 35 yrs e-Cigarette/Vaping Use: Never Used Current occupational status: retired Cognitive needs: No Hearing needs: No Vision needs: Yes Questionnaire PHQ-9 Over the last 2 weeks, how often have you been bothered by any of the following problems? 55673 - PHQ-9 Billing: Patient declined-do not bill Source: Developed by Drs. Augustine Burton, Vernon Arrington and colleagues, with an educational edilia from [employer]. Thrive Questionnaire Date Thrive assessed: 09/28/21 AUDIT C Alcohol Use Questionnaire (AUDIT-C) 1. How often do you have a drink containing alcohol?: 4 or more times a week 2. How many drinks containing alcohol do you have on a typical day when you are drinking?: 1 or 2 3. How often do you have six or more drinks on one occasion?: Never Total Score: 4 JENNIFFER-7 AMB Questionnaire JENNIFFER-7 Date JENNIFFER - 7 assessed: 09/28/21 Source: Developed by Drs. Augustine Burton, Vernon Arrington and colleagues, with an educational edilia from [employer]. JENNIFFER-7 Assessment Billing JENNIFFER-7 Assessment Tool: pt declined-do not bill Review of Systems Const All systems reviewed & are unremarkable except as noted in HPI and below Denies chills and Denies fever(s) Eyes Denies blurry vision and Denies diplopia ENT Denies vertigo and Denies dizziness Card Denies chest pain and Denies dyspnea Resp Denies dyspnea GI Denies diarrhea, Denies nausea and Denies vomiting Musc Denies tingling Neuro Denies vertigo, Denies dizziness, Denies tingling and Denies paresthesias Physical exam (Primary Care) Vital Signs: Last Vital Signs Pulse 64 02/05/24 11:19 BP 102/66 02/05/24 10:31 Pulse Ox 97 02/05/24 10:31 Oxygen Delivery Method Room Air 02/05/24 10:31 Care Plan Goal for BP management: Blood pressure currently controlled BMI result Body Mass Index 28.8 Tobacco/Smoking Status: Tobacco use Status Tobacco use date assessed 02/05/24 02/05/24 10:44 Patient Tobacco Use Status Former Tobacco user 02/05/24 10:32 e-Cigarette/Vaping Use Never Used 02/05/24 10:32 Thrive Assessment: Date of Thrive Assessment Date Thrive assessed 09/28/21 02/05/24 10:32 Const Other: Appearance: Alert.? Oriented X3.? No acute distress.? Head: Normocephalic, atraumatic, no step-offs or deformities Eyes: Sclera white Neck: Normal inspection.? Neck supple.? CVS: Normal heart rate and rhythm.? Pulses normal.? Respiratory: No respiratory distress.? Breath sounds normal.? Abdomen: Soft and nontender.? : +tenderness to right inguinal region. No palpable mass. Skin: Skin warm and dry.? Normal skin color.? Normal skin turgor.? Neuro: Oriented X 3.? No motor deficit.? No sensory deficit. CN 2-12 intact Assessment and Plan Assessment & Plan (1) FABIENNE (acute kidney injury): Comment: Patient had recent lab draw which showed improved kidney function. Patient will continue to hold lisinopril and other nephrotoxic medications. Patient encouraged to stay adequately hydrated. Code(s): N17.9 - Acute kidney failure, unspecified (2) Right inguinal pain: Comment: Tenderness to palpation on right inguinal region. No palpable mass. Will order ultrasound Code(s): R10.31 - Right lower quadrant pain (3) Vitamin D deficiency: Comment: Will redraw in 2 months. Code(s): E55.9 - Vitamin D deficiency, unspecified (4) Ear fullness: Comment: Patient will utilize fluticasone nasal spray. Code(s): H93.8X9 - Other specified disorders of ear, unspecified ear Qualifiers: Laterality: right Qualified Code(s): H93.8X1 - Other specified disorders of right ear Plan: Patient has been educated on signs of worsening symptoms and when to report back to the office or when to present to the ED. Orders: Orders Vitamin D 25-OH (D2 and D3) 2 Months Z13.21 - Encounter for screening for nutritional disorder US pelvic limited Today R10.31 - Right lower quadrant pain Medications: New fluticasone propionate 50 mcg/actuation (Allergy Relief (fluticasone)) administer into each nostril 2 sprays intranasal DAILY 16 grams 0RF Coding Level of Care Code Est Pt Level 3 (89808) Diagnoses FABIENNE (acute kidney injury) N17.9 Right inguinal pain R10.31 Vitamin D deficiency E55.9 Sensation of fullness in right ear H93.8X1 Laterality: right Time Spent (min) 31
[2024-02-05 10:31] VITALS: BP 102/66; PULSE 64; O2SAT 97; BMI 28.8
[2024-02-05 11:19] VITALS: PULSE 64
== END 2024-02-05 11:21 | disposition home or self-care (01) ==
PROVIDERS: PCP Internal Medicine; Visit Provider Nurse Practitioner Primary Care
DX: N17.9 Acute kidney failure, unspecified (principal); R10.31 Right lower quadrant pain; E55.9 Vitamin D deficiency, unspecified; H93.8X1 Other specified disorders of right ear
CPT/HCPCS: 99213

== ENCOUNTER 2024-02-12 12:35 | Outpatient (REF) | payer MEDICARE, SELFPAY ==
--- NOTE | ~2024-02-12 | US_ITS ---
EXAMINATION: US RIGHT UPPER QUADRANT, LIMITED/FOLLOW UP CLINICAL INFORMATION: Right lower quadrant pain. Indicated by patient. COMPARISON: Ultrasound retroperitoneum January 16, 2023. TECHNIQUE: Targeted ultrasound images were obtained by the garnett room worker of the area of concern as indicated by the patient in the right lower quadrant. Radiologist was not in attendance. Images were later provided for interpretation. FINDINGS: No discrete hernia, mass or fluid collection identified in the area of concern indicated by the patient in the right lower quadrant, although visualization is limited due to bowel gas. US/US pelvic limited IMPRESSION: No discrete hernia, mass or fluid collection identified in the area of concern indicated by the patient in the right lower quadrant, although visualization is limited due to bowel gas. CT scan should be considered for further evaluation.
== END 2024-02-12 12:36 | disposition home or self-care (01) ==
LOC: HO.HMGCX 12:35
PROVIDERS: PCP Internal Medicine; Visit Provider Nurse Practitioner Primary Care
DX: R10.31 Right lower quadrant pain (principal)
CPT/HCPCS: 76857

== ENCOUNTER 2024-05-28 11:16 | Outpatient (AMB) | payer MEDICARE, SELFPAY ==
--- NOTE | 2024-05-28 11:19 | A.OFFVIS_ITS ---
Intake Visit Reasons: 1y/PSA/PVR (psa)??? Intake Note: Patient presents today for a 1Y follow-up/PSA/PVR Meds- Tamsulosin Allergies to Antibiotic- NoNE Blood Thinner- Aspirin PVR- 0 mL TODAY'S PVR: Vascular Nurse Required: No Allergies No Known Allergies Allergy (Verified 06/28/24 15:04) HPI Comments Details: 05/28/24--Brayden is a 73-year-old male here for FU BPH. He has a past medical history significant for BPH, dyslipidemia, gastroenteritis, hypertension, history of [place], history of TIA, CAD, and proximal AFib. The patient denies hematuria, dysuria. I have discussed avoiding dietary bladder irritants, including to cut back on caffeine usage. PSA- 02/20/23--0.91 ng/mL. Will continue to monitor PSA. [facility] Medical History Nocturia History of syncope Paroxysmal atrial fibrillation Hyperlipidemia LDL goal <70 Essential hypertension Right bundle branch block (RBBB) with left anterior fascicular block Impaired fasting glucose GERD (gastroesophageal reflux disease) History of [place] (myocardial infarction) Coronary artery disease Tubular adenoma of colon Surgical History Hx of wisdom tooth extraction Hx of colonoscopy H/O heart artery stent History of discectomy Family History Mother Essential hypertension History of myocardial infarction Father Substance use disorder Sister Substance use disorder Social History Housing: House Alcohol intake: current Alcohol intake frequency: 0-2 drinks per day Alcohol type: hard liquor Patient Tobacco Use Status: Former Tobacco user Years Smoked: 35 yrs Smoked in Last 30 Days: No e-Cigarette/Vaping Use: Never Used Use of substances other than those prescribed or required for medical reasons: Yes Substance Use Type: Marijuana Advance Directives: No Advance Directives Information Provided: No Current occupational status: retired Cognitive needs: No Hearing needs: No Vision needs: Yes Review of Systems Const All systems reviewed & are unremarkable except as noted in HPI and below Reports no additional complaints Eyes Reports no additional complaints ENT Reports no additional complaints Card Reports no additional complaints Resp Reports no additional complaints GI Reports no additional complaints Reports as per HPI Musc Reports no additional complaints Skin/Breast Reports system reviewed and no additional complaints, except as documented Neuro Reports no additional complaints Psych Reports no additional complaints Endo Reports no additional complaints Dirk/Lymph Reports no additional complaints Aller/Immun Reports no additional complaints Office Procedures Post Void Residual Post Residual Void Post Void Residual (PVR): 0 [id number] Void Residual by ultrasound Results AMB Urinalysis, Automated UA Leukoctes 0 Pieter/uL Last Edit by BLAISE Dunlap on 05/28/24 11:28 UA Nitrite Negative Last Edit by Laisha De Los Santos [facility] on 05/28/24 11:28 UA Urobilinogen 1 mg/dL Last Edit by Laisha De Los Santos [facility] on 05/28/24 11:28 UA Protein 36 mg/dL Last Edit by Laisha De Los Santos [facility] on 05/28/24 11:28 UA pH 6.5 Last Edit by Laisha De Los Santos [facility] on 05/28/24 11:28 UA Blood 0 Kimo/uL Last Edit by Laisha De Los Santos [facility] on 05/28/24 11:28 UA Specific [place] 1.015 Last Edit by Laisha De Los Santos [facility] on 05/28/24 11: 28 UA Ketone Negative Last Edit by Laisha De Los Santos [facility] on 05/28/24 11:28 UA Bilirubin 0 mg/dL Last Edit by Laisha De Los Santos [facility] on 05/28/24 11:28 UA Glucose 0 mg/dL Last Edit by Laisha De Los Santos [facility] on 05/28/24 11:28 Results Reviewed Results Reviewed: Laboratory Last Values Urine pH (Auto) 6.5 05/28/24 11:27 Specific [place] (Auto) 1.015 05/28/24 11:27 Urine Protein (Auto) 36 mg/dL 05/28/24 11:27 Glucose (UA)(Auto) 0 mg/dL 05/28/24 11:27 Urine Ketones (Auto) Negative 05/28/24 11:27 Urine Blood (Auto) 0 Kimo/uL 05/28/24 11:27 Urine Nitrite (Auto) Negative 05/28/24 11:27 Urine Bilirubin (Auto) 0 mg/dL 05/28/24 11:27 Urine Urobilinogen (Auto) 1 mg/dL 05/28/24 11:27 Leukocyte Esterase (Auto) 0 Pieter/uL 05/28/24 11:27 Assessment & Plan Assessment & Plan (1) Nocturia: Code(s): R35.1 - Nocturia Category: Medical (2) BPH loc w urin obs/LUTS: Code(s): N40.1 - Benign prostatic hyperplasia with lower urinary tract symptoms Category: Medical Plan Cont Flomax bid Follow up in one year, PSA prior. Orders: Orders AMB Urinalysis Automated 05/28/24 Z13.9 - Encounter for screening, unspecified Patient Instructions: The patient had an opportunity to ask questions regarding treatment plan. The patient expressed understanding and agreement with the above treatment plan. The patient is aware they should contact our office by phone for worsening of their current condition or the appearance of new symptoms. Compliance is encouraged with any medications and followup testing that is ordered. It is a privilege to be allowed the opportunity to participate in the urologic care of your patient. If you have any questions or concerns regarding treatment for the above conditions please do not hesitate to contact me. The office telephone contact is [phone]. This note is constructed in part using voice recognition software. While every effort has been made to ensure accuracy biomedical engineering technologist errors may have been included. Yours sincerely, Juhi Orona MD Coding Level of Care Code Est Pt Level 3 (04569) Diagnoses Nocturia R35.1 BPH loc w urin obs/LUTS N40.1 CPT Codes Post Residual Void - PVR CPT Code: 43710-[id number] Void Residual by ultrasound ([id number])
== END 2024-05-28 11:48 | disposition home or self-care (01) ==
PROVIDERS: PCP Internal Medicine; Visit Provider Urology
DX: N40.1 Benign prostatic hyperplasia with lower urinary tract symptoms (principal); R35.1 Nocturia
CPT/HCPCS: 99213

== ENCOUNTER → 2024-05-28 11:16 | Outpatient (BNVA) | payer MEDICARE, SELFPAY | PROVIDERS: PCP Internal Medicine; Visit Provider Urology | DX: N40.1 Benign prostatic hyperplasia with lower urinary tract symptoms (principal); N13.8 Other obstructive and reflux uropathy; R35.1 Nocturia | CPT/HCPCS: 51798; 81003; 99212 ==

== ENCOUNTER 2024-06-28 14:57 | Emergency (ER) | payer MEDICARE, SELFPAY ==
--- NOTE | ~2024-06-28 | CT_ITS ---
EXAMINATION: NONCONTRAST HEAD CT NONCONTRAST MAXILLOFACIAL CT NONCONTRAST CERVICAL SPINE CT INDICATION INFORMATION: Fall. COMPARISON: None TECHNIQUE: Separate noncontrast CT examinations of the head, maxillofacial bones, and cervical spine were performed. Coronal and sagittal images were created for each examination at the technologist workstation. This CT examination was performed using dose optimization techniques as appropriate, variously including the following: *Automated exposure control *Adjustment of mA and/or kV according to patient size (this includes techniques or standardized protocols for targeted exams where dose is matched to indication/reason for exam; i.e. extremities or head) *Use of iterative reconstruction technique DLP: 513 mGy-cm FINDINGS: Head: There is no evidence of acute intracranial hemorrhage or territorial infarction. No abnormal mass effect or midline shift is seen. Brand to white matter differentiation is well preserved. No extra-axial fluid collections are identified. No hydrocephalus. Proportional prominence of the ventricles and sulcal spaces is consistent with mild volume loss. Patchy periventricular and deep white matter hypoattenuation is consistent with mild small vessel ischemic changes. No acute soft tissue abnormality. No calvarial fracture. The mastoid air cells are well aerated. Maxillofacial: No acute maxillofacial fractures are seen. The frontal, maxillary, ethmoid, and sphenoid sinuses are well aerated. The uncinate process is normal bilaterally. The infundibula and middle meati are patent. The nasal septum is midline. The mandibular heads are well-seated in the condylar fossa. There is diffuse subcutaneous thickening in the right periorbital regions with right frontal subgaleal hematoma. The globes are intact, and there are no suspicious findings to suggest retrobulbar hemorrhage. Cervical spine: There is anatomic alignment of the vertebral bodies and posterior elements. The atlantoaxial and atlantooccipital articulations are intact. Vertebral body heights are maintained. There is multilevel intervertebral disc space narrowing with endplate osteophyte formation and facet arthropathy. No evidence of acute fracture. No prevertebral soft tissue swelling. Emphysematous changes in the visualized lung apices. Subcentimeter left thyroid nodule CT/CT cervical spine wo IV con IMPRESSION: 1. No acute intracranial process. 2. No acute maxillofacial fracture. Right preorbital soft tissue swelling/contusion and right frontal subgaleal hematoma. Globe intact. 3. No acute fracture or malalignment of the cervical spine. Electronically signed by: Augustine Hoffmann MD 06/28/2024 03:50 PM EDT RP
[2024-06-28 15:00] VITALS: BP 113/69; PULSE 70; RESP 18; TEMP 36.4; O2SAT 98; BMI 29.0
--- NOTE | 2024-06-28 15:02 | ED_ITS ---
HPI - General Adult General Chief complaint: Fall Stated complaint: Fall/ Inj to eye Time Seen by Provider: 06/28/24 16:36 Source: patient, family, RN notes reviewed and old records reviewed Mode of arrival: EMS Limitations: no limitations History of Present Illness ED Provider: Terri HPI narrative: 73-year-old male presents following unwitnessed fall on Tuesday 06/26. He says that around 11:00 p.m. use coming back in from taking out the trash and tripped on his curb. Says that he struck his forehead in the area around his right eye. Denies loss of consciousness dizziness syncope. Denies chest pain palpitations at the time fall. He says that he did not come in yesterday because it does not did not look alarming. Today his daughter was worried by the appearance of his right eye and forehead. He denies headache, pain to the area, or neck pain. He says he is on clopidogrel due to 2 previous MIs. He says he has been this medication as prescribed. Has no other complaints. Onset (ago): day(s) Location: head and face Radiation: non-radiation Relieving factors: none Exacerbating factors: none Associated symptoms: denies other symptoms Treatments prior to arrival: none Related Data Home Medications ?Medication ?Instructions ?Recorded ?Confirmed aspirin 81 mg tablet,delayed 81 mg PO DAILY 02/22/21 02/05/24 release (Adult Low Dose Aspirin) amlodipine 5 mg tablet 5 mg PO DAILY 03/29/22 02/05/24 carvedilol 25 mg tablet 25 mg PO BID 03/29/22 02/05/24 Previous Rx's ?Medication ?Instructions ?Recorded atorvastatin 80 mg tablet 80 mg PO DAILY 90 days #90 tabs 05/31/23 tamsulosin 0.4 mg capsule (Flomax) 0.4 mg PO BID #60 caps 01/11/24 clopidogrel 75 mg tablet 75 mg PO DAILY #90 tabs 01/18/24 pantoprazole 40 mg tablet,delayed 40 mg PO DAILY #90 tabs 04/15/24 release fluticasone propionate 50 2 spray intranasal DAILY #16 grams 04/16/24 mcg/actuation nasal spray,suspension (Allergy Relief (fluticasone)) cephalexin 500 mg tablet 500 mg PO QID #28 tabs 06/28/24 Allergies Allergy/AdvReac Type Severity Reaction Status Date / Time No Known Allergies Allergy Verified 06/28/24 15:04 Review of Systems 2 Constitutional: Constitutional: Reports as per HPI, Denies chills, Denies fatigue, Denies fever(s) and Denies headache(s) Eyes: Eyes: Denies blurry vision, Denies change in vision, Denies diplopia, Denies eye pain and Denies photophobia ENT: Denies headache(s) Cardiovascular: Cardiovascular: Denies chest pain and Denies dyspnea Respiratory: Respiratory: Denies cough and Denies dyspnea Gastrointestinal: Gastrointestinal: Denies abdominal pain, Denies constipation and Denies vomiting Genitourinary: Genitourinary: Denies difficulty urinating and Denies dysuria Integumentary/Breasts: Skin/Breast: Reports as per HPI Neurologic: Denies headache(s) and Denies focal weakness Endocrine: Endocrine: Denies fatigue PMFSH Past Medical History Medical History Nocturia History of syncope Paroxysmal atrial fibrillation Hyperlipidemia LDL goal <70 Essential hypertension Right bundle branch block (RBBB) with left anterior fascicular block Impaired fasting glucose GERD (gastroesophageal reflux disease) History of [place] (myocardial infarction) Coronary artery disease Tubular adenoma of colon Surgical History Hx of wisdom tooth extraction Hx of colonoscopy H/O heart artery stent History of discectomy Family History Family History Mother Essential hypertension History of myocardial infarction Father Substance use disorder Sister Substance use disorder Social History Social History Housing: House Alcohol intake: current Alcohol intake frequency: 0-2 drinks per day Alcohol type: hard liquor Patient Tobacco Use Status: Former Tobacco user Years Smoked: 35 yrs Smoked in Last 30 Days: No e-Cigarette/Vaping Use: Never Used Use of substances other than those prescribed or required for medical reasons: Yes Substance Use Type: Marijuana Advance Directives: No Advance Directives Information Provided: No Current occupational status: retired Cognitive needs: No Hearing needs: No Vision needs: Yes Physical Exam ED Vital Signs: Vital Signs - 24 hr 06/28/24 15:00 06/28/24 17:13 06/28/24 18:46 Temperature 97.6 F 97.4 F 97.7 F Pulse Rate 70 63 66 Respiratory Rate 18 16 18 Blood Pressure 113/69 136/93 H 128/88 Pulse Oximetry 98 95 96 Oxygen Delivery Method Room Air Room Air Room Air BMI result Body Mass Index 29.0 Const General: healthy appearing, comfortable, no acute distress, alert and awake Nutritional Appearance: well nourished Orientation/consciousness: patient oriented x3 HENMT Other: Head: No normocephalic, No atraumatic, No Bosch's sign, Yes hematoma, No palpable skull fracture, No raccoon eyes, Yes scalp lesion and Yes periorbital ecchymosis (Unilateral right side ) Head images: 2 1. Superficial abrasion, has purulent discharge, dried blood. No acute bleed. Periorbital ecchymosis on the same side. Throat: Yes posterior oropharynx normal Eyes Other: Circumferential ecchymosis around right eye, no bleeding, skin is dark purple in coloration. EOM intact without pain, accommodation is intact. TTP in area, no radiation. Visual [place]: normal visual tejada by confrontation Alignment and Position: alignment normal and position normal Periorbital: periorbital findings abnormal right periorbital swelling, periorbital tenderness and periorbital ecchymosis; no erythema and no crepitus Eyelids: Yes eyelids normal Conjunctivae: conjunctivae normal Sclerae: sclerae normal Corneas: corneas normal Pupils: Equal, round and reactive pupils present EOM: EOMs intact bilaterally (Without entrapment or nystagmus) and No Nystagmus present Direct Ophthalmoscopy: normal light reflex, no photophobia, anterior chamber normal and No photophobia Neck Neck: Yes full ROM Resp Effort & Inspection: normal respiratory effort, able to speak in complete sentences, no audible wheezes and not labored Auscultation: clear to auscultation bilaterally Cardio Rate: regular rate Rhythm: regular rhythm GI Inspection: No distended Palpation (GI): Soft to palpation, not firm, nontender, no guarding and not rigid Auscultation: normoactive bowel sounds Skin General skin exam: no rashes or lesions noted and elasticity normal Neuro General: patient oriented x3 Cranial nerves: Yes CN's II-XII intact bilaterally, Yes Equal, round and reactive pupils present, Yes Bilaterally intact EOM present and No Nystagmus present Cognition (Neuro): normal cognition Motor exam (neuro): 5/5 motor strength present throughout Extrem Other: Moving all extremities well without any obvious deformities Course Course Course Narrative: RME: Done by April Figueroa. 73-year-old male presents to ED for right orbital ecchymosis after falling yesterday morning while taking out the trash. Patient fell and hit head on a cement stairs. Patient denies any loss of consciousness. Negative for tenderness around the left orbital ecchymosis. Chest abdomen negative for any bruises. Patient is sent for imaging of head and neck and face. Negative for signs of eye muscle impingement. Reevaluation(s) Reevaluation #1: Patient's visual acuity is actually improved in the affected eye. He is stable for discharge at this time. Time: 18:26 Medications Administered Discontinued Medications Generic Name Dose Route Start Last Admin Trade Name Freq PRN Reason Stop Dose Admin Bacitracin 1 appl 06/28/24 17:38 06/28/24 18:06 Bacitracin Oint 0.9 Gm Packet TOPICAL 06/28/24 17:39 1 appl ONCE ONE Administration Protocol Diphtheria/Tetanus/Acell Pertussis 0.5 ml 06/28/24 15:03 06/28/24 15:54 Diphth,Pertus(Acell),Tet Adult 0.5 Ml Syringe IM 06/28/24 15:04 0.5 ml .ONCE ONE Administration Medical Decision Making Medical Decision Making [facility] Narrative: 73-year-old male presents for evaluation of a facial trauma. He tripped and fell, this was a nonsyncopal event. He denies any eye pain, will check visual acuity. He has no entrapment or nystagmus. CT scan show no evidence of retrobulbar hematoma or globe injury. The patient's abrasion was cleaned, will provide bacitracin, dressed the wound and the patient be discharged with oral antibiotics. Differential Diagnosis Differential Diagnoses: The differential diagnosis associated with the presentation includes Facial trauma Facial fracture Orbital fracture Abrasion Laceration Cellulitis Radiology Impression Discussion of test interpretation with radiology: I have reviewed the radiologist's reading. Radiologist Impression: CT/CT head/brain wo IV con IMPRESSION: 1. No acute intracranial process. 2. No acute maxillofacial fracture. Right preorbital soft tissue swelling/contusion and right frontal subgaleal hematoma. Globe intact. 3. No acute fracture or malalignment of the cervical spine. Electronically signed by: Augustine Hoffmann MD 06/28/2024 03:[address]/CT facial bones wo IV con IMPRESSION: 1. No acute intracranial process. 2. No acute maxillofacial fracture. Right preorbital soft tissue swelling/contusion and right frontal subgaleal hematoma. Globe intact. 3. No acute fracture or malalignment of the cervical spine. Electronically signed by: Augustine Hoffmann MD 06/28/2024 03:[address]/CT cervical spine wo IV con IMPRESSION: 1. No acute intracranial process. 2. No acute maxillofacial fracture. Right preorbital soft tissue swelling/contusion and right frontal subgaleal hematoma. Globe intact. 3. No acute fracture or malalignment of the cervical spine. Electronically signed by: Augustine Hoffmann MD 06/28/2024 03:50 PM EDT RP Discharge Plan Discharge Clinical Impression: Contusion of face Patient Disposition: Home, Self-Care Instructions: Hematoma (ED), Facial Contusion (ED) Additional Instructions: Your CT scans showed a hematoma but no evidence of injury to your eyeball itself. Apply topical antibiotic to the abrasion every other day Take cephalexin 4 times daily for the next week Follow-up with your primary doctor, return for new or worsening symptoms Prescriptions: New cephalexin 500 mg tablet 500 mg PO QID Qty: 28 0RF No Action atorvastatin 80 mg tablet 80 mg PO DAILY 90 Days Qty: 90 1RF tamsulosin [Flomax] 0.4 mg capsule 0.4 mg PO BID Qty: 60 4RF Rx Instructions: flomax 2 times daily to replace alfuzosin clopidogrel 75 mg tablet 75 mg PO DAILY Qty: 90 1RF pantoprazole 40 mg tablet,delayed release (DR/EC) 40 mg PO DAILY Qty: 90 0RF fluticasone propionate [Allergy Relief (fluticasone)] 50 mcg/actuation spray,suspension 2 spray intranasal DAILY Qty: 16 2RF Rx Instructions: administer into each nostril aspirin [Adult Low Dose Aspirin] 81 mg tablet,delayed release (DR/EC) 81 mg PO DAILY carvedilol 25 mg tablet 25 mg PO BID amlodipine 5 mg tablet 5 mg PO DAILY Interventions: ED Discharge Assessment Last Done: 06/28/24 18:46 Discharge Date/Time: 06/28/24 18:47 Print Language: Kazakh
[2024-06-28] MEDS: Diphth,Pertus(ACell),Tet Adult 0.5 ML SYRINGE IM (15:54)
--- NOTE | 2024-06-28 15:56 | PC.NURSE ---
[facility] a&ox3, v[facility] pt states he tripped and fell face first onto concrete at home on the sidewalk on saturday, denies LOC, noted ecchymosis and swelling to periorbital area, pt also states he does take thinners,this nurse had a conversation with patient and family about not coming to the ED for 2 days when pt had a head strike and on thinners- this nurse explained that he could potentially had a head bleed which could have been fatal and he needs to ensure to at least get checked after any type of head strike- both patient and family member understand for any future incidents.
--- NOTE | 2024-06-28 15:59 | PC.NURSE ---
pt medicated per order
[2024-06-28 17:13] VITALS: BP 136/93; PULSE 63; RESP 16; TEMP 36.3; O2SAT 95
[2024-06-28] MEDS: Bacitracin Oint 0.9 GM PACKET 1 APPL TOPICAL (18:06)
[2024-06-28 18:46] VITALS: BP 128/88; PULSE 66; RESP 18; TEMP 36.5; O2SAT 96
== END 2024-06-28 18:47 | disposition home or self-care (01) ==
PROVIDERS: Emergency Provider Emergency Medicine; PCP Internal Medicine
DX: S00.83XA Contusion of other part of head, initial encounter (principal); S00.81XA Abrasion of other part of head, initial encounter; R51.9 Headache, unspecified; M54.2 Cervicalgia; W01.0XXA Fall on same level from slipping, tripping and stumbling without subsequent striking against object, initial encounter; Y93.89 Activity, other specified; Y92.096 Garden or yard of other non-institutional residence as the place of occurrence of the external cause; Y99.8 Other external cause status; Z23 Encounter for immunization; Z79.899 Other long term (current) drug therapy
CPT/HCPCS: 70450; 70486; 72125; 90471; 90715; 99284

== ENCOUNTER 2024-08-03 12:45 | Outpatient (REF) | payer MEDICARE, SELFPAY ==
[2024-08-03 14:23] LABS: PSA,Total (Free>4and<10) 2.53 ng/mL (0.00-4.00)
[2024-08-08 15:49] LABS: Vitamin D 25-OH, D2 <4 ng/mL; Vitamin D 25-OH, D3 37 ng/mL; Vitamin D 25-OH, Total 37 ng/mL (30-100)
== END 2024-08-03 12:46 | disposition home or self-care (01) ==
LOC: HO.LAB 12:45
PROVIDERS: Nurse Practitioner Primary Care; PCP Internal Medicine; Referring Provider Internal Medicine; Visit Provider Urology
DX: Z13.21 Encounter for screening for nutritional disorder (principal); Z12.5 Encounter for screening for malignant neoplasm of prostate
CPT/HCPCS: 36415; 82306; 84153

== ENCOUNTER 2024-08-07 09:51 | Outpatient (AMB) | payer MEDICARE, SELFPAY ==
--- NOTE | 2024-08-07 09:47 | MHC.PC.OV ---
Intake Visit Reasons: 6 mo. f/u Andr. [phone] Allergies No Known Allergies Allergy (Verified 08/07/24 10:07) Medication List - Last Reconciled 08/07/24 by Cheryle Davidson MD amlodipine 5 mg PO DAILY aspirin (Adult Low Dose Aspirin) 81 mg PO DAILY atorvastatin 80 mg PO DAILY 90 days carvedilol 25 mg PO BID clopidogrel 75 mg PO DAILY fluticasone propionate 50 mcg/actuation (Allergy Relief (fluticasone)) 2 sprays intranasal DAILY pantoprazole 40 mg PO DAILY tamsulosin (Flomax) 0.4 mg PO BID Tobacco use date assessed: 08/07/24 Fall risk assessment: 1 Fall in past year Last assessed Fall Risk: 08/07/24 Dental Screening Dental Screen Date: 08/07/24 Did you have a dental visit in the last 12 months?: No Did you have a dental problem in the last 6 months where you did not have access to dental care?: No Was dental information given to patient?: No HPI 6 mo. f/u Andr. [phone] HPI Details Telehealth appointment made with 73-year-old male presenting for a follow-up visit. In prior blood work, his cholesterol levels were within normal limits, and his electrolytes were stable. His blood glucose was slightly elevated, yet his Hemoglobin A1c was 5.5%. The patient's prostate-specific antigen (PSA) was normal in latest test. He was also found to have a vitamin D deficiency, with repeat vitamin-D results from an earlier draw still pending due to delays at the laboratory.. He denies any energy deficits or persistent fatigue . He has been feeling well with no complaints at present time. [facility] Medical History Nocturia History of syncope Paroxysmal atrial fibrillation Hyperlipidemia LDL goal <70 Essential hypertension Right bundle branch block (RBBB) with left anterior fascicular block Impaired fasting glucose GERD (gastroesophageal reflux disease) History of MS (myocardial infarction) Coronary artery disease Tubular adenoma of colon Surgical History Hx of wisdom tooth extraction Hx of colonoscopy H/O heart artery stent History of discectomy Family History Mother Essential hypertension History of myocardial infarction Father Substance use disorder Sister Substance use disorder Social History Housing: House Alcohol intake: current Alcohol intake frequency: 0-2 drinks per day Alcohol type: hard liquor Patient Tobacco Use Status: Former Tobacco user Years Smoked: 35 yrs e-Cigarette/Vaping Use: Never Used Substance Use Type: Marijuana Current occupational status: retired Cognitive needs: No Hearing needs: No Vision needs: Yes Questionnaire PHQ-9 Over the last 2 weeks, how often have you been bothered by any of the following problems? 1. Little interest or pleasure in doing things: not at all 2. Feeling down, depressed, or hopeless: not at all 3. Trouble falling or staying asleep, or sleeping too much: not at all 4. Feeling tired or having little energy: not at all 5. Poor appetite or overeating: not at all 6. Feeling bad about yourself - or that you are a failure or have let yourself or your family down: not at all 7. Trouble concentrating on things, such as reading the newspaper or watching television: not at all 8. Moving or speaking so slowly that other people could have noticed. Or the opposite - being so fidgety or restless that you have been moving around a lot more than usual: not at all 9. Thoughts that you would be better off or of hurting yourself in some way: not at all Total score: 0 Depression Screening Interpretation: Negative Depression Screening Done: Yes 62961 - PHQ-9 Billing: Yes Source: Developed by Drs. Augustine Burton, Tiffanie Mullins, Vernon Casillas and colleagues, with an educational edilia from [employer]. Thrive Questionnaire Date Thrive assessed: 08/07/24 I am a: Patient What is your living situation today?: I have a steady place to live Within the past 12 months, did the food you bought not last and you didn't have the money to get more?: Never true Within the past 12 months, did you worry whether your food would run out before you got money to buy more?: Never true Do you have trouble paying for medicines?: No Do you have trouble getting transportation to medical appointments?: No Do you have trouble paying your heating and electricity bill?: No Do you have trouble taking care of your child, family member or friend?: No Do you have trouble with day-to-day activities such as bathing, preparing meals, shopping, managing finances, etc.?: No Are you currently unemployed and looking for a job?: No Are you interested in more education?: No THRIVE Score: 0 AUDIT C Alcohol Use Questionnaire (AUDIT-C) 1. How often do you have a drink containing alcohol?: 4 or more times a week 2. How many drinks containing alcohol do you have on a typical day when you are drinking?: 1 or 2 3. How often do you have six or more drinks on one occasion?: Never Total Score: 4 JENNIFFER-7 AMB Questionnaire JENNIFFER-7 Date JENNIFFER - 7 assessed: 08/07/24 Feeling nervous, anxious, or on edge: 0 = Not at all Not being able to stop or control worryin = Not at all Worrying too much about different things: 0 = Not at all Trouble relaxin = Not at all Being so restless that it is hard to sit still: 0 = Not at all Becoming easily annoyed or irritable: 0 = Not at all Feeling afraid as if something awful might happen: 0 = Not at all Total JENNIFFER-7 score (0-4 normal; 5-9 mild; 10-14 moderate; 15-21 severe): 0 Source: Developed by Drs. Augustine Burton, Tiffanie Mullins, Vernon Casillas and colleagues, with an educational edilia from [employer]. JENNIFFER-7 Assessment Billing JENNIFFER-7 Assessment Tool: JENNIFFER-7 Assessment 52669 Review of Systems Const Reports no additional complaints Eyes Reports no additional complaints ENT Reports no additional complaints Card Reports no additional complaints Resp Reports no additional complaints GI Reports no additional complaints Reports as per HPI Musc Reports no additional complaints Skin/Breast Reports system reviewed and no additional complaints, except as documented Neuro Reports no additional complaints Psych Reports no additional complaints Endo Reports no additional complaints Dirk/Lymph Reports no additional complaints Aller/Immun Reports no additional complaints Physical exam (Primary Care) Tobacco/Smoking Status: Tobacco use Status Tobacco use date assessed 08/07/24 08/07/24 09:50 Patient Tobacco Use Status Former Tobacco user 08/07/24 09:50 e-Cigarette/Vaping Use Never Used 08/07/24 09:50 PHQ-9: PHQ-9 Score PHQ-9: Total score 0 08/07/24 10:08 Depression Screening Interpretation: Negative Thrive Assessment: Date of Thrive Assessment Date Thrive assessed 08/07/24 08/07/24 09:50 Telehealth Telehealth Telehealth Platform: [facility] Location of provider rendering services: practice address Location of patient: address on file Patient Identification confirmed using: Name, : Yes Telehealth method: video Patient verbally consented to treatment: Yes Patient verbally consented to billing insurance company: Yes Patient informed of any privacy concerns related to visit: Yes Minutes spent on Phone/Video with Pt.: 15 Coding Level of Care Code Tele Est Pt Level 3 (09931) Diagnoses Impaired fasting glucose R73.01 Essential hypertension I10 Hyperlipidemia LDL goal <70 E78.5 Vitamin D deficiency E55.9 Additional Codes PHQ-9 - 11870 - PHQ-9 Billing: Yes ([id number]) JENNIFFER-7 Assessment Billing - JENNIFFER-7 Assessment Tool: JENNIFFER-7 Assessment 27672 ([id number]) Assessment & Plan Assessment & Plan (1) Impaired fasting glucose: Code(s): R73.01 - Impaired fasting glucose Category: Medical (2) Essential hypertension: Code(s): I10 - Essential (primary) hypertension Category: Medical (3) Hyperlipidemia LDL goal <70: Code(s): E78.5 - Hyperlipidemia, unspecified Category: Medical (4) Vitamin D deficiency: Code(s): E55.9 - Vitamin D deficiency, unspecified Category: Medical Plan - Pre-diabetes: No immediate interventions required as A1c is stable. Continue monitoring blood glucose and A1c levels. - Vitamin D deficiency: Await pending lab results for updated status. Current supplementation to continue. - Preventative Care: Ensure patient receives flu and COVID-19 booster vaccines; discuss the need for shingles vaccine after completion of current vaccines. ffup arranged for November, with prior lab work scheduled to assess overall health maintenance. Patient was informed and verbally consented to the use of an ambient scribe for clinic note documentation during this visit. Orders: Orders Basic Metabolic Panel Fasting 11/14/24 E55.9 - Vitamin D deficiency, unspecified, E78.5 - Hyperlipidemia, unspecified, I10 - Essential (primary) hypertension, I25.10 - Atherosclerotic heart disease of [place] coronary artery without angina pectoris, R73.01 - Impaired fasting glucose Alanine Aminotransferase 11/14/24 E55.9 - Vitamin D deficiency, unspecified, E78.5 - Hyperlipidemia, unspecified, I10 - Essential (primary) hypertension, I25.10 - Atherosclerotic heart disease of [place] coronary artery without angina pectoris, R73.01 - Impaired fasting glucose Aspartate Amino Transferase 11/14/24 E55.9 - Vitamin D deficiency, unspecified, E78.5 - Hyperlipidemia, unspecified, I10 - Essential (primary) hypertension, I25.10 - Atherosclerotic heart disease of [place] coronary artery without angina pectoris, R73.01 - Impaired fasting glucose Lipid Panel 11/14/24 E55.9 - Vitamin D deficiency, unspecified, E78.5 - Hyperlipidemia, unspecified, I10 - Essential (primary) hypertension, I25.10 - Atherosclerotic heart disease of [place] coronary artery without angina pectoris, R73.01 - Impaired fasting glucose Vitamin D 25-OH Total 11/14/24 E55.9 - Vitamin D deficiency, unspecified, E78.5 - Hyperlipidemia, unspecified, I10 - Essential (primary) hypertension, I25.10 - Atherosclerotic heart disease of [place] coronary artery without angina pectoris, R73.01 - Impaired fasting glucose
== END 2024-08-07 10:25 | disposition home or self-care (01) ==
LOC: HO.HMCC 09:51
PROVIDERS: PCP Internal Medicine; Visit Provider Internal Medicine
DX: R73.01 Impaired fasting glucose (principal); I10 Essential (primary) hypertension; E78.5 Hyperlipidemia, unspecified; E55.9 Vitamin D deficiency, unspecified

== ENCOUNTER → 2024-08-07 09:51 | Outpatient (BNVA) | payer MEDICARE, SELFPAY | PROVIDERS: PCP Internal Medicine; Visit Provider Internal Medicine | DX: R73.01 Impaired fasting glucose (principal); I10 Essential (primary) hypertension; E78.5 Hyperlipidemia, unspecified; E55.9 Vitamin D deficiency, unspecified | CPT/HCPCS: 96127 ==

== ENCOUNTER 2024-12-21 13:57 | Outpatient (REF) | payer MEDICARE, SELFPAY ==
--- OUTSIDE RECORDS SUMMARY | 2024-12-21 16:43 | XMS_ITS | Clinical Summary ---
Author Organization [address] [place] [address] [place] [phone] Phone Care Team Providers Care Auto Radio Mechanic Name Role Phone Cheryle Davidson MD Primary Care Provider [phone] Allergies No known active allergies Medications amLODIPine (NORVASC) 5 mg tablet Take 1 tablet (5 mg total) by mouth 1 (one) time each day. 4 Active aspirin 81 mg EC tablet Active atorvastatin (LIPITOR) 40 mg tablet Active carvediloL (COREG) 25 mg tablet Take 12.5 mg by mouth 2 (two) times a day with meals. 4 Active clopidogreL (PLAVIX) 75 mg tablet Active pantoprazole (PROTONIX) 40 mg EC tablet Active lisinopriL (PRINIVIL,ZESTR IL) 30 mg tablet 0 12/09/19 25 Discontinu ed(Stop Taking at Discharge) coenzyme Q-10 100 mg capsule 12/09/19 25 Discontinu ed(Stop Taking at Discharge) Active Problems Problem Noted Date Diagnosed Date Syncope 02/18/2023 Overview (08/12/2024): Episode of syncope that resulted in a emergency room visit and hospitalization at [facility] in the late 2021. Work-up including troponins, extensive cardiac telemetry monitoring and laboratory work-up were unrevealing. No recurrent syncope or presyncope. Last Assessment & Plan: No recurrent syncope or presyncope. Little to suggest an arrhythmic etiology. We will continue adequate hydration and I will ask extended work-up if he has any recurrent episodes. We will consider implantable loop recorder if that is the case. Hypertension 02/18/2023 Overview (08/12/2024): Hypertension requiring multiple medications. Doing well on amlodipine, lisinopril and carvedilol. Last Assessment & Plan: Hypertension is well controlled on current medications and diet. Continue low- sodium diet. Coronary artery disease 02/18/2023 Overview (08/12/2024): Presented initially with an ND in 2005. He had left arm pain and nausea. He had an RCA stent for an occluded RCA. Initial catheterization showed 60% mid LAD, 80% second diagonal and 70% circumflex lesion. He did well on medical therapy until 2016 when he had recurrent chest pain and angiography demonstrated a 90% mid mid LAD that was stented. He had a 3.0 drug-eluting stent to the mid LAD at that time. He has been on lipid-lowering therapy with atorvastatin aspirin and a beta-saturnino since then. Last Assessment & Plan: Recurrent dyspnea on exertion that is concerning for possible anginal equivalent. He does not appear to be volume overloaded on exam but I will get a BNP to be certain that this is not due to pulmonary congestion. I will get a nuclear stress test which we will do pharmacologically given his exertional dyspnea which will likely limit his ability to reach target heart rate. If he has significant ischemia will refer for coronary angiography. He will continue with aspirin, atorvastatin, amlodipine and carvedilol. If the stress test is benign I will consider getting pulmonary function test. I will review the BNP to rule out pulmonary congestion. We will continue the to healthy low-salt diet and exercise as possible after completion of his work-up. I asked him to do his colonoscopy after we get the stress test. I have no problem with him holding Plavix for the colonoscopy if his ischemic work-up is negative. Encounters Date Type Department Care Team Description 12/08/2024 10:40 AM EDT Office Visit [facility] - [address] [place] [address] Svetlana Milian, AUTOMATION ANALYST Coronary artery disease, unspecified vessel or lesion type, unspecified whether angina present, unspecified whether [place] or transplanted heart (Primary Dx) 10/16/2024 Telephone [facility] - [facility] [address] [facility] [address] [place] [address] Svetlana Milian NP No Show from Last 3 Months Social History Tobacco Use Types Packs/Day Years Used Date Smoking Tobacco: Former Smokeless Tobacco: Never Alcohol Use Standard Drinks/Week Comments Yes 0 (1 standard drink = 0.6 oz pur e alcohol) Sex and Gender Information Value Date Recorded Sex Assigned at Not on file Legal Sex Male 6:05 AM EST Gender Identity Not on file Sexual Orientation Not on file Obstetrics History Last Filed Vital Signs Vital Sign Reading Time Taken Comments Blood Pressure 100/60 12/08/2024 10:31 AM EDT Pulse 53 12/08/2024 10:31 AM EDT Temperature - - Respiratory Rate - - Oxygen Saturation 96% 12/08/2024 10:31 AM EDT Inhaled Oxygen Concentration - - Weight 93.4 kg (206 lb) 12/08/2024 10:31 AM EDT Height 175.3 cm (5' 9 ) 12/08/2024 10:31 AM EDT Body Mass Index 30.42 12/08/2024 10:31 AM EDT Plan of Treatment Upcoming Encounters Date Type Department Care Team (Late st Contact Info) Description 05/18/2025 1:10 PM EDT Office Visit [facility] - [facility] [address] [facility] [address] [place] [phone] Svetlana Milian NP [address] [place] [phone] Health Maintenance Due Date Last Done Comments Zoster Vaccines (1 of 2) 2000 Abdominal Aortic Aneurysm (AAA) Screen 08/19/2022 Cholesterol Screening (Lipid Panel) 08/19/2022 Colorectal Cancer Screening: Colonoscopy 08/19/2022 Depression Screening 08/19/2022 Falls Risk Assessment 08/19/2022 Hepatitis C Screening 08/19/2022 Medicare Annual Wellness Visit 08/19/2022 Social Influencers of Health Screening 08/19/2022 Hypertension/CHF/CAD Annual BMP Blood Test 10/15/2023 COVID-19 Vaccine ( season) 2024 08/22/2022, 08/02/2021, 01/13/2021, Additional history exists Influenza Vaccine (#1) 2024 2, 10/01/2019, 06/19/2018, Additional history exists RSV Immunization Adult Patients (1 - 1-dose 75+ series) 2025 DTaP,Tdap,and Td Vaccines (2 - Td or Tdap) 06/28/2034 06/28/2024 Pneumococcal Vaccine: 50+ Years Completed 08/02/2022, 08/22/2007 HIB Vaccines Aged Out No longer eligi ble based on patient's age to complete this topic HPV Vaccines Aged Out No longer eligi ble based on patient's age to complete this topic Hepatitis A Vaccines Aged Out No long er eligible based on patient's age to complete this topic Hepatitis B Vaccines Aged Out No long er eligible based on patient's age to complete this topic IPV Vaccines Aged Out No longer eligi ble based on patient's age to complete this topic MMR Vaccines Aged Out No longer eligi ble based on patient's age to complete this topic Meningococcal ACWY Vaccine Aged Out N o longer eligible based on patient's age to complete this topic Meningococcal B Vaccine Aged Out No l onger eligible based on patient's age to complete this topic RSV Immunization Patients Under 20 months Aged Out No longer eligible based on patient's age to complete this topic Varicella Vaccines Aged Out No longer eligible based on patient's age to complete this topic Procedures Procedure Name Priority Date/Time Associated Diagnosis Comments ECG 12-LEAD Routine 12/08/2024 11:56 AM EDT Coronary artery disease, unspecified vessel or lesion type, unspecified whether angina present, unspecified whether [place]qu[place]mi[place] or transplanted heart from Last 3 Months Results * ECG 12 lead (12/08/2024 11:56 AM EDT) Ventricular Rate ECG 52 BPM GEMUSE Atrial Rate 60 BPM GEMUSE QRS Duration 110 ms GEMUSE Q-T Interval 446 ms GEMUSE QTc 414 ms GEMUSE R [place] -75 degrees GEMUSE T [place] 23 degrees GEMUSE ECG Interpretation Atrial fibrillation with slow ventricular response Pulmonary disease pattern Left anterior fascicular block Abnormal ECG When compared with ECG of 10-DEC-2013 08:53, Atrial fibrillation has replaced Sinus rhythm Questionable change in QRS duration GEMUSE 12/08/2024 10:5 0 AM EDT us Svetlana Milian AUTOMATION ANALYST ECG ORDERABLES Final Result GEMUSE from Last 3 Months Insurance [employer] Care Teams Auto Radio Mechanic Relationship Specialty Start Date End Date Cheryle Davidson MD [address] [place] [address] PCP - General 02/04/13
--- OUTSIDE RECORDS SUMMARY | 2024-12-21 16:43 | XMS_ITS | Patient Health Record ---
Author Organization [facility] Address [address] [place] [address] Care Team Providers Care Boarding Specialist Name Role Phone Cheryle Davidson MD Primary Care Provider Guerrero Gonzalez Jr Unavailable [phone] Allergies No Known Allergies Reason For Referral No Information Medications Medication SIG (Take, Route, Frequency, Duration) Notes Start Date End Date Status Atorvastatin Calcium 80 MG TAKE 1 TABLET BY MOUTH DAILY Diagnosis Unavailable Oral for 90 Active Carvedilol 25 MG Oral for 30 A ctive Pantoprazole Sodium 40 MG TAKE 1 TABLET BY MOUTH DAILY Oral for 90 Active amLODIPine Besylate 5 MG Oral for 90 Active CoQ-10 100 MG as directed Orally 12/20/2022 Active Anusol-HC 25 MG 1 suppository Rectal At night for 30 days 10/01/2013 Not-Taking MiraLax (colon prep) 8.3 ounce ((238) grams mixed with Gatorade or Crystal Light orally begin at 5:00 p.m. the day before the procedure for 1 day 12/20/2022 Active Lisinopril 30 MG 1 tablet Orally Once a day for 30 day(s) Active Clopidogrel Bisulfate 75mg Active Aspir-81 81mg Active Multivitamin Active Immunizations Vaccine Route Administration Date Status Comme nts Influenza Unknown 07/03/2022 Administered Social History Alcohol Screen Question Answer Notes Did you have a drink contain ing alcohol in the past year? Yes How often did you have a dri nk containing alcohol in the past year? 2 to 3 times a week (3 points) How many drinks did you have on a typical day when you were drinking in the past year? 1 or 2 drinks (0 point) How often did you have 6 or more drinks on one occasion in the past year? Never (0 point) Points 3 Interpretation Negative Problems Problem Type SNOMED Code ICD Code Onset Dates Problem Status W/U Status Risk Notes Problem 599026147 Colon cancer screening (Z12.11) Active confirmed Problem 279439103 Esophageal reflux (K21.9) Active confirmed Problem 38441321 Rectal bleeding (K62.5) Active confirmed Problem 867880960 Personal history of colonic polyps (Z86.010) Active confirmed Problem 12030010 Other hemorrhoids (K64.8) Active confirmed Problem 426141824 Abnormal liver function tests (R79.89) Active confirmed Problem 755404882 Long-term use of aspirin therapy (Z79.82) Active confirmed Plan Of Treatment Pending Test Test Name Order Date CERULOPLASMIN 12/17/2014 Future Test Test Name Order Date COLONOSCOPY 03/06/2012 UPPER GI ENDOSCOPY 10/01/2013 COLONOSCOPY 12/20/2022 Insurance Providers Payer Name Payer Address Payer Phone Subscriber Number Group Number Insured Name Patient Relationship to Insured Coverage Start Date Coverage End Date [facility] [address] [place] [phone] [id number] [place] [employer]O Self - patient is the insured Medical (General) History Medical History History ICD Code Colonoscopy 04/09/12, tubular adenoma x1, five-year followup GERD EGD 03/22/14, no H. pylori or [place] 's esophagus Hypertension Coronary disease with history of RI in S ept, 2005 and stent placement x3 Hyperlipidemia Fatty liver, liver biopsy 07/04/15 Right bundle branch block Surgical History Surgery Date(Month/Year) back surgery L-5 X2 2012 Hospitalization History Reason Date(Month/Year) dehydration 2021
--- OUTSIDE RECORDS SUMMARY | 2024-12-21 16:43 | XMS_ITS | Clinical Summary ---
Author Organization [facility] Address [address] [place] [address], [place] [address] Care Team Providers Care Service Desk Associate Name Role Phone Phyllis Davidson MD Primary Care Provider [phone] Social History Tobacco Use Types Packs/Day Years Used Date Smoking Tobacco: Never Assessed Sex and Gender Information Value Date Recorded Sex Assigned at Not on file Legal Sex Male 11:41 AM EDT Gender Identity Not on file Sexual Orientation Not on file Plan of Treatment Health Maintenance Due Date Last Done Comments Colorectal Cancer Screening: Annual FOBT 1999 Colorectal Cancer Screening: Colonoscopy 1999 Colorectal Cancer Screening: Sigmoidoscopy 1999 Pneumococcal Vaccine: 65+ Ye ars (1 of - PCV) 2015 Influenza Vaccine (Season Ended) 2025 Hepatitis B Vaccine Aged Out No longe r eligible based on patient's age to complete this topic [place] [address] [address] [place] [address] Care Teams Service Desk Associate Relationship Specialty Start Date End Date Phyllis Davidson MD [address] [place] [address] PCP - General Internal Medicine 12/12/23
[2024-12-21 19:17] LABS: Alanine Aminotransferase 52 U/L (0-40); Anion Gap 15 (12-20); Aspartate Amino Transferase 63 U/L (5-37); Blood Urea Nitrogen 15 mg/dL (9-16); Calcium 9.7 mg/dL (8.4-10.2); Carbon Dioxide 23 mmol/L (22-29); Chloride 101 mmol/L (96-108); Cholesterol 129 mg/dL (<200); Estimated Glomerular Filt Rate 50; Glucose Fasting 109 mg/dL (60-99); HDL Cholesterol 69 mg/dL (>40); LDL Cholesterol Calculated 52 mg/dL (<100); Potassium 4.2 mmol/L (3.3-5.1); Sodium 135 mmol/L (135-145); Triglycerides 44 mg/dL (<150)
[2024-12-21 19:34] LABS: Vitamin D 25-OH Total 32.4 ng/mL (>30)
== END 2024-12-21 13:58 | disposition home or self-care (01) ==
LOC: HO.LAB 13:57
PROVIDERS: PCP Internal Medicine; Visit Provider Internal Medicine
DX: E55.9 Vitamin D deficiency, unspecified (principal); E78.5 Hyperlipidemia, unspecified; I10 Essential (primary) hypertension; R73.01 Impaired fasting glucose; I25.10 Atherosclerotic heart disease of native coronary artery without angina pectoris
CPT/HCPCS: 36415; 80048; 80061; 82306; 84450; 84460

== ENCOUNTER 2024-12-23 11:45 | Outpatient (AMB) | payer MEDICARE, SELFPAY ==
[2024-12-23 11:55] VITALS: BP 106/70; PULSE 53; RESP 14; TEMP 36.4; O2SAT 97; BMI 29.5
--- NOTE | 2024-12-23 11:55 | MHC.PC.OV ---
Vital Signs 12/23/24 11:55 Height 5 ft 9 in Weight 200 lb BMI 29.5 BP 106/70 Blood Pressure Location Lt brachial Position Sitting Respiration 14 Pulse 53 Pulse Source Pulse Oximeter Temp 97.6 F Temp Source Oral Pulse Oximetry (%) 97 Oxygen Delivery Method Room Air Intake Visit Reasons: f/u lipids,htn,ifg - see comments Intake Note: Pt is here today for his lipids and HTN Allergies No Known Allergies Allergy (Verified 12/27/24 18:45) Medication List - Last Reconciled 12/27/24 by Cheryle Davidson MD amlodipine 5 mg PO DAILY aspirin (Adult Low Dose Aspirin) 81 mg PO DAILY atorvastatin 80 mg PO DAILY 90 days carvedilol 25 mg PO BID clopidogrel 75 mg PO DAILY pantoprazole 40 mg PO DAILY Tobacco use date assessed: 12/23/24 Fall risk assessment: 1 Fall in past year Last assessed Fall Risk: 12/23/24 Dental Screening Dental Screen Date: 12/23/24 Did you have a dental visit in the last 12 months?: No Did you have a dental problem in the last 6 months where you did not have access to dental care?: No Was dental information given to patient?: No HPI f/u lipids,htn,ifg - see comments HPI Details 74 year-old male with hypertension, dyslipidemia, paroxysmal atrial fibrillation, CKD , with impaired fasting glucose and GERD, coronary artery disease status post SD, here today for follow-up. He has been feeling well, compliant with taking his medication, but states that he has had some labs as with his diet and has not been exercising regularly this past winter. Fasting labs showed fasting lipids are within normal limits, with fasting glucose in the prediabetic range and GFR at 50. Has no new complaints at present time. [facility] Medical History (Updated 12/27/24 @ 18:55 by Cheryle Davidson MD) CKD (chronic kidney disease) stage 3, GFR 30-59 ml/min Nocturia History of syncope Hyperlipidemia LDL goal <70 Essential hypertension Right bundle branch block (RBBB) with left anterior fascicular block Impaired fasting glucose GERD (gastroesophageal reflux disease) History of SD (myocardial infarction) Coronary artery disease Tubular adenoma of colon Surgical History Hx of wisdom tooth extraction Hx of colonoscopy H/O heart artery stent History of discectomy Family History Mother Essential hypertension History of myocardial infarction Father Substance use disorder Sister Substance use disorder Social History Housing: House Alcohol intake: current Alcohol intake frequency: 0-2 drinks per day Alcohol type: hard liquor Patient Tobacco Use Status: Former Tobacco user Years Smoked: 35 yrs e-Cigarette/Vaping Use: Never Used Substance Use Type: Marijuana Current occupational status: retired Cognitive needs: No Hearing needs: No Vision needs: Yes Questionnaire PHQ-9 Over the last 2 weeks, how often have you been bothered by any of the following problems? 1. Little interest or pleasure in doing things: not at all 2. Feeling down, depressed, or hopeless: not at all 3. Trouble falling or staying asleep, or sleeping too much: not at all 4. Feeling tired or having little energy: not at all 5. Poor appetite or overeating: not at all 6. Feeling bad about yourself - or that you are a failure or have let yourself or your family down: not at all 7. Trouble concentrating on things, such as reading the newspaper or watching television: not at all 8. Moving or speaking so slowly that other people could have noticed. Or the opposite - being so fidgety or restless that you have been moving around a lot more than usual: not at all 9. Thoughts that you would be better off or of hurting yourself in some way: not at all Total score: 0 Depression Screening Interpretation: Negative Depression Screening Done: Yes 84775 - PHQ-9 Billing: Yes Source: Developed by Drs. Augustine Burton, Tiffanie Mullins, Vernon Casillas and colleagues, with an educational edilia from [employer]. Thrive Questionnaire Date Thrive assessed: 12/23/24 I am a: Patient What is your living situation today?: I have a steady place to live Within the past 12 months, did the food you bought not last and you didn't have the money to get more?: Never true Within the past 12 months, did you worry whether your food would run out before you got money to buy more?: Never true Do you have trouble paying for medicines?: No Do you have trouble getting transportation to medical appointments?: No Do you have trouble paying your heating and electricity bill?: No Do you have trouble taking care of your child, family member or friend?: No Do you have trouble with day-to-day activities such as bathing, preparing meals, shopping, managing finances, etc.?: No Are you currently unemployed and looking for a job?: No Are you interested in more education?: No THRIVE Score: 0 AUDIT C Alcohol Use Questionnaire (AUDIT-C) 1. How often do you have a drink containing alcohol?: 4 or more times a week 2. How many drinks containing alcohol do you have on a typical day when you are drinking?: 1 or 2 3. How often do you have six or more drinks on one occasion?: Never Total Score: 4 JENNIFFER-7 AMB Questionnaire JENNIFFER-7 Date JENNIFFER - 7 assessed: 12/23/24 Feeling nervous, anxious, or on edge: 0 = Not at all Not being able to stop or control worryin = Not at all Worrying too much about different things: 0 = Not at all Trouble relaxin = Not at all Being so restless that it is hard to sit still: 0 = Not at all Becoming easily annoyed or irritable: 0 = Not at all Feeling afraid as if something awful might happen: 0 = Not at all Total JENNIFFER-7 score (0-4 normal; 5-9 mild; 10-14 moderate; 15-21 severe): 0 Source: Developed by Drs. Augustine Burton, Tiffanie Mullins, Vernon Casillas and colleagues, with an educational edilia from [employer]. JENNIFFER-7 Assessment Billing JENNIFFER-7 Assessment Tool: JENNIFFER-7 Assessment 86641 Review of Systems Const Reports no additional complaints Eyes Reports no additional complaints ENT Reports no additional complaints Card Reports no additional complaints Resp Reports no additional complaints GI Reports no additional complaints Reports no additional complaints Musc Reports no additional complaints Skin/Breast Reports system reviewed and no additional complaints, except as documented Neuro Reports no additional complaints Psych Reports no additional complaints Endo Reports no additional complaints Dirk/Lymph Reports no additional complaints Aller/Immun Reports no additional complaints Physical exam (Primary Care) Vital Signs: Last Vital Signs Temp 97.6 F 12/23/24 11:55 Pulse 53 12/23/24 11:55 Resp 14 12/23/24 11:55 BP 106/70 12/23/24 11:55 Pulse Ox 97 12/23/24 11:55 Oxygen Delivery Method Room Air 12/23/24 11:55 BMI result Body Mass Index 29.5 Tobacco/Smoking Status: Tobacco use Status Tobacco use date assessed 12/23/24 12/23/24 12:00 Patient Tobacco Use Status Former Tobacco user 12/23/24 11:55 e-Cigarette/Vaping Use Never Used 12/23/24 11:55 PHQ-9: PHQ-9 Score PHQ-9: Total score 0 12/23/24 12:36 Depression Screening Interpretation: Negative Thrive Assessment: Date of Thrive Assessment Date Thrive assessed 12/23/24 12/23/24 12:02 Const General: no acute distress and alert Orientation/consciousness: patient oriented x3 HENMT Ears: external ears normal General nose exam: Normal external nose present Mouth: Normal oral and palatal mucosa present, oropharynx normal and moist mucous membranes Eyes General: appearance normal, both eyes and all related structures Conjunctivae: conjunctivae normal Sclerae: sclerae normal Pupils: Equal, round and reactive pupils present EOM: EOMs intact bilaterally Neck Neck: Yes full ROM, Yes no lymphadenopathy and Yes supple Resp Effort & Inspection: normal respiratory effort and able to speak in complete sentences Auscultation: clear to auscultation bilaterally Cardio Rate: regular rate Rhythm: regular rhythm Heart sounds: S1 normal heart sound present and S2 normal heart sound present GI Palpation (GI): Soft to palpation, nontender and no masses Auscultation: normal bowel sounds Back/Spine/Pelvis Back: No back tenderness Skin General skin exam: no rashes or lesions noted Neuro General: patient oriented x3, gait normal, tone normal, moves all extremities and no focal motor deficits Cranial nerves: Yes Equal, round and reactive pupils present Cognition (Neuro): normal cognition Extrem General: Yes full ROM, Yes no joint enlargement, Yes no clubbing, cyanosis or edema and Yes no calf tenderness Psych Appearance: grossly normal and well kempt Mental Status: mental status grossly normal Speech and movement: Normal speech and movement present Affect: normal affect Attitude: cooperative Thought process: Normal thought process present Thought content: Normal thought content present Results Reviewed Results Reviewed: Name: Brayden Mackey Age/Sex: 74/M : 1950 Unit#: [id number] Attend Dr: Cheryle Davidson MD Re12/21/24 Status: DEP REF Location: .LAB Disch: SPEC : [id number] SHERI: 12/21/24 STATUS: COMP REQ : [id number] RECD: 12/21/[address]: Cheryle Davidson MD COMP: 12/21/24 ENTERED: 12/21/24-[address]: ORDERED: Met Prof Fast, AST, ALT, Lipid Panel, Vitamin D 25-OH Test Result Flag Reference Sodium 135 135-145 mmol/L Potassium 4.2 3.3-5.1 mmol/L CL 101 96-108 mmol/L CO2 23 22-29 mmol/L Gap 15 12-20 BUN 15 9-16 mg/dL Creat 1.40 0.5-1.4 mg/dL eGFR 50 Chronic Kidney Disease: Estimated GFR < 60 mL/min/1.73m2 Severe Kidney Disease: Estimated GFR < 15 mL/min/1.73m2 FBS 109 H 60-99 mg/dL A fasting glucose from 100-125 mg/dl is considered impaired (pre-diabetes). CA 9.7 8.4-10.2 mg/dL AST (GOT) 63 H 5-37 U/L ALT (GPT) 52 H 0-40 U/L Triglyceride 44 <150 mg/dL Desirable Triglyceride: less than 150 mg/dL Borderline High Triglyceride 150-199 mg/dL High Triglyceride: 200-499 mg/dL Very High Triglyceride: greater than or equal to 5OO mg/dL Cholesterol 129 <200 mg/dL Desirable Cholesterol: less than 200 mg/dL Borderline High Cholesterol: 200-239 mg/dL High Cholesterol: greater than 239 mg/dL LDL Calculated 52 <100 mg/dL Desirable LDL: less than 100 mg/dL Near Optimal/Above Optimal LDL: 110-129 mg/dL Borderline High LDL: 130-159 mg/dL High LDL: 160-189 mg/dL Very High LDL: greater than or equal to 190 mg/dL HDL 69 >40 mg/dL Desirable HDL: greater than 40 mg/dL Note: This HDL assay may give artificially low results in patients with liver disease. Vitamin D 25-OH 32.4 >30 ng/mL Health Based Reference Values* < 20 ng/mL Deficient 20-30 ng/mL Insufficient > 30 ng/mL Sufficient Coding Level of Care Code Est Pt Level 4 (55332) Complex EM visit Add On G2211 Diagnoses Coronary artery disease involving [place] coronary artery of [place] heart without angina pectoris I25.10 Coronary Disease-Associated Artery/Lesion type: [place] artery [place] vs. transplanted heart: [place] heart Associated angina: without angina Essential hypertension I10 Hyperlipidemia LDL goal <70 E78.5 CKD (chronic kidney disease) stage 3, GFR 30-59 ml/min N18.30 Additional Codes PHQ-9 - 89573 - PHQ-9 Billing: Yes ([id number]) JENNIFFER-7 Assessment Billing - JENNIFEFR-7 Assessment Tool: JENNIFFER-7 Assessment 65802 ([id number]) Assessment & Plan Assessment & Plan (1) Coronary artery disease: Code(s): I25.10 - Atherosclerotic heart disease of [place] coronary artery without angina pectoris Category: Medical Qualifiers: Coronary Disease-Associated Artery/Lesion type: [place] artery [place] vs. transplanted heart: [place] heart Associated angina: without angina Qualified Code(s): I25.10 - Atherosclerotic heart disease of [place] coronary artery without angina pectoris Plan: Currently on aspirin and clopidogrel without any adverse effects. Stressed importance of adhering to a healthy diet, low in salt and processed food, encouraged to exercise regularly, followed by [facility] cardiology (2) Essential hypertension: Code(s): I10 - Essential (primary) hypertension Category: Medical Plan: Blood pressure at goal of less than 130/80. Continue with carvedilol and amlodipine at the same dose Reinforced importance of following a low sodium diet, getting regular exercise, and lowering stress levels. (3) Hyperlipidemia LDL goal <70: Code(s): E78.5 - Hyperlipidemia, unspecified Category: Medical Plan: Reviewed recent fasting lipid profile with patient with LDL cholesterol at goal of less than 55 . Continue atorvastatin 80 mg daily , in addition to adherence to low-cholesterol diet and regular exercise, at least 30 minutes 3 to 4 times a week. Advised patient to make healthy food choices, eat more fruits, vegetables, whole grains, wild caught fish and low-fat dairy. Limit amount of meat and fried or fatty food products, as well as processed foods and fast foods. Follow-up scheduled with repeat fasting lipid panel in 6 months. (4) CKD (chronic kidney disease) stage 3, GFR 30-59 ml/min: Code(s): N18.30 - Chronic kidney disease, stage 3 unspecified Category: Medical Plan: Stressed importance of getting blood pressure, glucose levels and lipids under good control, avoidance of NSAIDs. Orders: Orders Complete Blood Count Auto Diff 05/29/25 E78.5 - Hyperlipidemia, unspecified, I10 - Essential (primary) hypertension, I25.10 - Atherosclerotic heart disease of [place] coronary artery without angina pectoris, I48.0 - Paroxysmal atrial fibrillation Alanine Aminotransferase 05/29/25 E78.5 - Hyperlipidemia, unspecified, I10 - Essential (primary) hypertension, I25.10 - Atherosclerotic heart disease of [place] coronary artery without angina pectoris, I48.0 - Paroxysmal atrial fibrillation Lipid Panel 05/29/25 E78.5 - Hyperlipidemia, unspecified, I10 - Essential (primary) hypertension, I25.10 - Atherosclerotic heart disease of [place] coronary artery without angina pectoris, I48.0 - Paroxysmal atrial fibrillation Vitamin D 25-OH Total 05/29/25 E78.5 - Hyperlipidemia, unspecified, I10 - Essential (primary) hypertension, I25.10 - Atherosclerotic heart disease of [place] coronary artery without angina pectoris, I48.0 - Paroxysmal atrial fibrillation Basic Metabolic Panel Fasting 05/29/25 E78.5 - Hyperlipidemia, unspecified, I10 - Essential (primary) hypertension, I25.10 - Atherosclerotic heart disease of [place] coronary artery without angina pectoris, I48.0 - Paroxysmal atrial fibrillation Aspartate Amino Transferase 05/29/25 E78.5 - Hyperlipidemia, unspecified, I10 - Essential (primary) hypertension, I25.10 - Atherosclerotic heart disease of [place] coronary artery without angina pectoris, I48.0 - Paroxysmal atrial fibrillation
--- OUTSIDE RECORDS SUMMARY | 2024-12-23 13:51 | XMS_ITS | Clinical Summary ---
Author Organization [facility] Facility Address [address] [place] [address], [place] [address] Care Team Providers Care Iuss Acoustic Analyst Name Role Phone Phyllis Davidson MD Primary Care Provider [phone] Social History Tobacco Use Types Packs/Day Years [...] patient's age to complete this topic [place] [address] [place] [address] Care Teams Iuss Acoustic Analyst Relationship Specialty Start Date End Date Phyllis Davidson MD [address] [place] [address] PCP - General Internal Medicine 12/12/23
--- OUTSIDE RECORDS SUMMARY | 2024-12-23 13:51 | XMS_ITS | Patient Health Record ---
Author Organization [facility] Address [address] [place] [address] Care Team Providers Care Road Builder Name Role Phone Cheryle Davidson MD Primary Care Provider Guerrero Gonzalez Jr Unavailable Allergies No Known Allergies Reason For Referral [...] Problem Status W/U Status Risk Notes Problem 144834799 Colon cancer screening (Z12.11) Active confirmed Problem 189805919 Esophageal reflux (K21.9) Active confirmed Problem 03402411 Rectal bleeding (K62.5) Active confirmed Problem 785616863 Personal history of colonic polyps (Z86.010) Active confirmed Problem 02175437 Other hemorrhoids (K64.8) Active confirmed Problem 978942418 Abnormal liver function tests (R79.89) Active confirmed Problem 133650294 Long-term use of aspirin therapy (Z79.82) Active confirmed Plan Of Treatment Pending Test Test Name Order Date CERULOPLASMIN 12/17/2014 Future Test Test Name Order Date COLONOSCOPY 03/06/2012 UPPER GI ENDOSCOPY 10/01/2013 COLONOSCOPY 12/20/2022 Insurance Providers Payer Name Payer Address Payer Phone Subscriber Number Group Number Insured Name Patient Relationship to Insured Coverage Start Date Coverage End Date [facility] [address] [place] [phone] [id number] [place] [employer]O Self - patient is the insured Medical (General) History Medical History History ICD Code Colonoscopy 04/09/12, tubular adenoma x1, five-year followup GERD EGD 03/22/14, no H. pylori or [place] 's esophagus Hypertension Coronary disease with history of [place] in S ept, 2005 and stent placement x3 Hyperlipidemia Fatty liver, liver biopsy 07/04/15 Right bundle branch block Surgical History Surgery Date(Month/Year) back surgery L-5 X2 2012 Hospitalization History Reason Date(Month/Year) dehydration 2021
--- OUTSIDE RECORDS SUMMARY | 2024-12-23 13:51 | XMS_ITS | Clinical Summary ---
Author Organization [address] [place] [address] [place] [phone] Phone Care Team Providers Care Nuclear Power Plant Engineer Name Role Phone Cheryle Davidson MD Primary Care Provider Allergies No known active allergies Medications amLODIPine [...] a emergency room visit and hospitalization at [facility] in the late 2021. Work-up including [...] 02/18/2023 Overview (08/12/2024): Presented initially with an PA in 2005. He had left arm pain [...] Description 12/08/2024 10:40 AM EDT Office Visit [facility] - [address] [place] [address] Svetlana Milian, INSTALLER SOFT TOP Coronary artery disease, unspecified vessel or lesion type, unspecified whether angina present, unspecified whether [place] or transplanted heart (Primary Dx) 10/16/2024 Telephone [facility] - [facility] [address] [facility] [address] [place] [address] Svetlana Milian NP No Show [...] Description 05/18/2025 1:10 PM EDT Office Visit [facility] - [facility] [address] [facility] [address] [place] [phone] Svetlana Milian NP [address] [place] [phone] Health Maintenance Due Date Last Done Comments [...] type, unspecified whether angina present, unspecified whether [place] or transplanted heart from Last 3 Months Results * ECG 12 lead (12/08/2024 11:56 AM EDT) Ventricular Rate ECG 52 BPM GEMUSE Atrial Rate 60 BPM GEMUSE QRS Duration 110 ms GEMUSE Q-T Interval 446 ms GEMUSE QTc 414 ms GEMUSE R [place] -75 degrees GEMUSE T [place] 23 degrees GEMUSE ECG Interpretation Atrial fibrillation with slow ventricular response Pulmonary disease pattern Left anterior fascicular block Abnormal ECG When compared with ECG of 10-DEC-2013 08:53, Atrial fibrillation has replaced Sinus rhythm Questionable change in QRS duration GEMUSE 12/08/2024 10:5 0 AM EDT us Svetlana Milian INSTALLER SOFT TOP ECG ORDERABLES Final Result GEMUSE from Last 3 Months Insurance [employer] Care Teams Nuclear Power Plant Engineer Relationship Specialty Start Date End Date Cheryle Davidson MD [address] [place] [address] PCP - General 02/04/13
== END 2024-12-23 12:34 | disposition home or self-care (01) ==
LOC: HO.HMCC 11:45
PROVIDERS: PCP Internal Medicine; Visit Provider Internal Medicine
DX: I25.10 Atherosclerotic heart disease of native coronary artery without angina pectoris (principal); I10 Essential (primary) hypertension; E78.5 Hyperlipidemia, unspecified; N18.30 Chronic kidney disease, stage 3 unspecified

== ENCOUNTER → 2024-12-23 11:45 | Outpatient (BNVA) | payer MEDICARE, SELFPAY | PROVIDERS: PCP Internal Medicine; Visit Provider Internal Medicine | DX: I10 Essential (primary) hypertension (principal); I48.0 Paroxysmal atrial fibrillation; I25.10 Atherosclerotic heart disease of native coronary artery without angina pectoris; I25.2 Old myocardial infarction; E78.5 Hyperlipidemia, unspecified; N18.9 Chronic kidney disease, unspecified; K21.9 Gastro-esophageal reflux disease without esophagitis | CPT/HCPCS: 96127; 99212 ==

== ENCOUNTER 2025-05-04 11:30 | Outpatient (AMB) | payer MEDICARE, SELFPAY ==
--- NOTE | 2025-05-04 11:37 | AM.OFFWIN_ITS ---
Intake Vital Signs 05/04/25 11:38 Height 5 ft 9 in Weight 196 lb BMI 28.9 BP 118/76 Blood Pressure Location Rt brachial Position Sitting Pulse 71 Pulse Source Pulse Oximeter Temp 98.1 F Temp Source Oral Pulse Oximetry (%) 98 Oxygen Delivery Method Room Air Intake Visit Reasons: EP Cough Intake Note: presents with productive cough x3 Patient Tobacco Use Status: Former Tobacco user Allergies No Known Allergies Allergy (Verified 05/04/25 11:40) Do you need a note to return to daycare/school/sports/work: No HPI HPI Comments History of Present Illness Details History - The patient is a 74-year-old male pres enting with a persistent cough lasting three weeks. - The cough is primarily dry, with occas ional production of sputum. - The cough is worse at night and in the morning. - The patient has been taking Mucinex, w hich provides temporary relief. - The patient reports experiencing night sweats but denies weight loss. - The patient has tested negative for CO VID-19 on three occasions. - He is not a smoker. - He denies CP, SOB, wheezing, abd pain, n/v/d, sore throat, or ear pain. Physical Exam General: Cooperative, healthy appearing, comfortable and no acute distress Orientation/consciousness: Patient oriented x3 Limitations: No limitations Head: Normal to inspection Ears: Hearing grossly normal bilaterally, external ears normal and TM's normal bilaterally Nose: Normal external nose present, normal nares present, and no nasal discharge present. Face and sinus: Sinuses nontender to palpation. Mouth: Normal oral and palatal mucosa present and moist mucous membranes noted. Throat: Tonsils normal. Uvula is midline. Posterior oropharynx with erythema and no exudates. Eyes: Appearance normal, both eyes and all related structures Neck: Normal visual inspection, full ROM. No lymphadenopathy noted. Respiratory: Clear to auscultation bilaterally. Normal respiratory effort, able to speak in complete sentences. No respiratory distress, not tachypneic, no tripod positioning and no use of accessory muscles. Cardiovascular: Regular rate and rhythm. Normal S1 and S2 Skin: No rashes or lesions noted Patient was informed and verbally consented to the use of an ambient scribe for clinic note documentation during this visit [facility] Medical History (Updated 12/27/24 @ 18:55 by Cheryle Davidson MD) CKD (chronic kidney disease) stage 3, GFR 30-59 ml/min Nocturia History of syncope Hyperlipidemia LDL goal <70 Essential hypertension Right bundle branch block (RBBB) with left anterior fascicular block Impaired fasting glucose GERD (gastroesophageal reflux disease) History of CA (myocardial infarction) Coronary artery disease Tubular adenoma of colon Surgical History Hx of wisdom tooth extraction Hx of colonoscopy H/O heart artery stent History of discectomy Family History Mother Essential hypertension History of myocardial infarction Father Substance use disorder Sister Substance use disorder Social History Housing: House Alcohol intake: current Alcohol intake frequency: 0-2 drinks per day Alcohol type: hard liquor Patient Tobacco Use Status: Former Tobacco user Years Smoked: 35 yrs e-Cigarette/Vaping Use: Never Used Substance Use Type: Marijuana Current occupational status: retired Cognitive needs: No Hearing needs: No Vision needs: Yes Review of Systems Const All systems reviewed & are unremarkable except as noted in HPI and below Physical Exam Vital Signs: Last Vital Signs Temp 98.1 F 05/04/25 11:38 Pulse 71 05/04/25 11:38 BP 118/76 05/04/25 11:38 Pulse Ox 98 05/04/25 11:38 Oxygen Delivery Method Room Air 05/04/25 11:38 BMI result Body Mass Index 28.9 Results Reviewed Results Reviewed: Reviewed the CXR in the office Assessment & Plan Assessment & Plan (1) Cough: Code(s): R05.9 - Cough, unspecified Qualifiers: Cough type: acute Qualified Code(s): R05.1 - Acute cough Plan Most likely URI vs bronchitis vs covid vs RSV vs flu vs CAP Plan - Prescribe cough medicine, prednisone, and an antibiotic pack due to the duration of symptoms. - Conduct a covid/flu/rsv test to rule out influenza. - Perform a chest X-ray to exclude pneumonia. - VSS, pt well appearing - follow up with PCP Orders: Orders XR chest 2V Today R05.9 - Cough, unspecified Resp Pathogen Panel - [facility] [place] Today J06.9 - Acute upper respiratory infection, unspecified Medications: New prednisone 40 mg (2 x 20 mg) PO DAILY 10 tabs 0RF benzonatate 100 mg PO bid-tid PRN 21 caps 0RF Cough 7 days azithromycin For 250 mg dose pack: take 500 mg today (day 1), then 250 mg for 4 days (days 2-5) PO 6 tabs 0RF Coding Level of Care Code Est Pt Level 4 (33404) Diagnoses Acute cough R05.1 Cough type: acute
[2025-05-04 11:38] VITALS: BP 118/76; PULSE 71; TEMP 36.7; O2SAT 98; BMI 28.9
--- OUTSIDE RECORDS SUMMARY | 2025-05-04 13:05 | XMS_ITS | Clinical Summary ---
Author Organization [address] [place] [address] [place] [phone] Phone Care Team Providers Care Sales Operations Coordinator Name Role Phone Cheryle Davidson MD Primary Care Provider Allergies No known active allergies Medications aspirin 81 mg EC tablet Active atorvastatin (LIPITOR) 40 mg tablet Active carvediloL (COREG) 25 mg tablet Take 12.5 mg by mouth 2 (two) times a day with meals. 4 Active clopidogreL (PLAVIX) 75 mg tablet Active pantoprazole (PROTONIX) 40 mg EC tablet Active amLODIPine (NORVASC) 5 mg tablet TAKE 1 TABLET BY MOUTH DAILY 90 tablet 3 5 Active amLODIPine (NORVASC) 5 mg tablet Take 1 tablet (5 mg total) by mouth 1 (one) time each day. 4 04/20/20 25 Discontinued Active Problems Problem Noted Date Diagnosed Date Syncope 02/18/2023 Overview (08/12/2024): Episode of syncope that resulted in a emergency room visit and hospitalization at [facility] in the late 2021. Work-up including troponins, [...] 02/18/2023 Overview (08/12/2024): Presented initially with an VT in 2005. He had left arm pain [...] colonoscopy if his ischemic work-up is negative. Social History Tobacco Use Types Packs/Day Years [...] Care Team (Late st Contact Info) Description 05/19/2025 1:10 PM EDT Office Visit [facility] [address] [place] [id number] Svetlana Milian NP [address] [place] [phone] Health Maintenance Due Date Last Done Comments Zoster Vaccines (1 of 2) 2000 Abdominal Aortic Aneurysm (AAA) Screen 08/19/2022 Cholesterol Screening (Lipid Panel) 08/19/2022 Colorectal Cancer Screening: Colonoscopy 08/19/2022 Falls Risk Assessment 08/19/2022 Hepatitis C Screening 08/19/2022 Medicare Annual Wellness Visit 08/19/2022 Social Influencers of Health Screening 08/19/2022 Hypertension/CHF/CAD Annual BMP Blood Test 10/15/2023 COVID-19 Vaccine ( season) 2024 08/22/2022, 08/02/2021, 01/13/2021, Additional history exists Depression Screening 09/16/2024 Influenza Vaccine (#1) 2025 , 10/01/2019, 06/19/2018, Additional history exists RSV Immunization [...] patient's age to complete this topic Insurance [employer] Care Teams Sales Operations Coordinator Relationship Specialty Start Date End Date Cheryle Davidson MD [address] [facility] [place] [address] PCP - General 02/04/13
--- OUTSIDE RECORDS SUMMARY | 2025-05-04 13:05 | XMS_ITS | Patient Health Record ---
Author Organization [facility] Address [address] [place] [address] Care Team Providers Care Sustainable Products Marketing Manager Name Role Phone Cheryle Davidson MD Primary Care Provider Guerrero Gonzalez Jr Unavailable [phone] Allergies No Known Allergies Reason For Referral [...] Problem Status W/U Status Risk Notes Problem [id number] Colon cancer screening (Z12.11) Active confirmed Problem 272887382 Esophageal reflux (K21.9) Active confirmed Problem 49273257 Rectal bleeding (K62.5) Active confirmed Problem 235220357 Personal history of colonic polyps (Z86.010) Active confirmed Problem 75626990 Other hemorrhoids (K64.8) Active confirmed Problem 237748170 Abnormal liver function tests (R79.89) Active confirmed Problem 539318937 Long-term use of aspirin therapy (Z79.82) Active confirmed Plan Of Treatment Pending Test Test Name Order Date CERULOPLASMIN 12/17/2014 Future Test Test Name Order Date COLONOSCOPY 03/06/2012 UPPER GI ENDOSCOPY 10/01/2013 COLONOSCOPY 12/20/2022 Insurance Providers Payer Name Payer Address Payer Phone Subscriber Number Group Number Insured Name Patient Relationship to Insured Coverage Start Date Coverage End Date [facility] [address] [place] [phone] [id number] [employer] [employer] Self - patient is the insured Medical (General) History Medical History History ICD Code Colonoscopy 04/09/12, tubular adenoma x1, five-year followup GERD EGD 03/22/14, no H. pylori or Hastings 's esophagus Hypertension Coronary disease with history of [place] in S ept, 2005 and stent placement x3 Hyperlipidemia Fatty liver, liver biopsy 07/04/15 Right bundle branch block Surgical History Surgery Date(Month/Year) back surgery L-5 X2 2012 Hospitalization History Reason Date(Month/Year) dehydration 2021
--- OUTSIDE RECORDS SUMMARY | 2025-05-04 13:05 | XMS_ITS | Clinical Summary ---
Author Organization [facility] Facility Address [address] [place] [address], [place] [address] Care Team Providers Care Quarter Section Ironer Name Role Phone Phyllis Davidson MD Primary Care Provider [phone] Social History Tobacco Use Types Packs/Day Years [...] Colorectal Cancer Screening: Sigmoidoscopy 1999 Pneumococcal Vaccine: 50+ Ye ars (1 of 1 - PCV) 2000 Influenza Vaccine (#1) 2025 Hepatitis B Vaccine Aged Out No longe r eligible based on patient's age to complete this topic [place] [address] Care Teams Quarter Section Ironer Relationship Specialty Start Date End Date Phyllis Davidson MD [address] [place] [address] PCP - General Internal Medicine 12/12/23
== END 2025-05-04 12:44 | disposition home or self-care (01) ==
PROVIDERS: PCP Internal Medicine; Visit Provider Physician Assistant Medical
DX: R05.1 Acute cough (principal)

== ENCOUNTER 2025-05-04 11:30 | Outpatient (REF) | payer MEDICARE, SELFPAY ==
--- NOTE | ~2025-05-04 | XR_ITS ---
EXAMINATION: XR CHEST 2 VIEWS HISTORY: R05.9 - Cough, unspecified COMPARISON: There are no prior studies available for comparison. FINDINGS: PA and lateral views of the chest are submitted. There are increased interstitial markings. There are no focal airspace opacities. There is no pleural effusion, pneumothorax, or pulmonary vascular congestion. The heart is mildly enlarged. There is degenerative disc disease of the spine. XR/XR chest 2V IMPRESSION: Cardiomegaly. Increased interstitial markings. Electronically signed by: Augustine Marin MD 05/04/2025 12:15 PM EDT
[2025-05-04 15:02] LABS: Chlamydia pneumoniae PCR Not Detected (Not Detect.); Coronavirus 229E PCR Not Detected (Not Detect.); Coronavirus HKU1 PCR Not Detected (Not Detect.); Coronavirus NL63 PCR Not Detected (Not Detect.); Coronavirus OC43 PCR Not Detected (Not Detect.); RSV PCR Not Detected (Not Detect.); Rhino/Enterovirus PCR Not Detected (Not Detect.)
[2025-05-04 15:20] LABS: Influenza A H1 PCR Not Detected (Not Detect.); Influenza A H1-2009 PCR Not Detected (Not Detect.); Influenza A H3 PCR Not Detected (Not Detect.); SARS-CoV-2 PCR Not Detected (Not Detect.)
== END 2025-05-04 11:31 | disposition home or self-care (01) ==
LOC: HO.HMGCX 11:30
PROVIDERS: PCP Internal Medicine; Visit Provider Physician Assistant Medical
DX: R05.1 Acute cough (principal)
CPT/HCPCS: 71046; 87633; 99212

== ENCOUNTER → 2025-05-04 12:05 | Outpatient (BNV) | payer MEDICARE, SELFPAY | PROVIDERS: PCP Internal Medicine; Visit Provider Radiology Diagnostic Radiology | DX: R05.9 Cough, unspecified (principal) | CPT/HCPCS: 71046 ==

== ENCOUNTER 2025-06-11 12:52 | Outpatient (REF) | payer MEDICARE, SELFPAY ==
[2025-06-11 13:06] LABS: MANUAL DIFF FLAG NO
[2025-06-11 13:28] LABS: Hematocrit 42.0 % (42.0-52.0); Hemoglobin 14.4 g/dl (14.0-18.0); Imm Gran Abs Auto 0.04 X10*3/uL (0.00-0.03); Imm Gran Pct Auto 0.6 % (0.0-0.4); Lymphocytes Absolute Auto 1.5 X10*3/uL (1.2-4.9); Mean Corpuscular HGB Conc 34.3 g/dl (31.0-36.0); Mean Corpuscular Hemoglobin 30.5 pg (27.0-33.0); Mean Corpuscular Volume 89.0 fL (80.0-98.0); NRBC Abs Auto 0.000 X10*3/uL (0.0-0.012); NRBC Pct Auto 0.0 /100WBC (0.0-0.2); Platelet Count 256 X10*3/uL (160-400); Red Blood Count 4.72 X10*6/uL (4.60-5.80); White Blood Count 7.0 X10*3/uL (4.8-10.8)
[2025-06-11 14:10] LABS: Alanine Aminotransferase 30 U/L (0-40); Anion Gap 12 (12-20); Aspartate Amino Transferase 46 U/L (5-37); Blood Urea Nitrogen 19 mg/dL (9-16); Calcium 9.2 mg/dL (8.4-10.2); Carbon Dioxide 26 mmol/L (22-29); Chloride 103 mmol/L (96-108); Cholesterol 144 mg/dL (<200); Estimated Glomerular Filt Rate 42; HDL Cholesterol 55 mg/dL (>40); Potassium 4.2 mmol/L (3.3-5.1); Sodium 137 mmol/L (135-145); Triglycerides 61 mg/dL (<150)
--- OUTSIDE RECORDS SUMMARY | 2025-06-11 14:14 | XMS_ITS | Clinical Summary ---
Author Organization [address] [place] [address] Address [address] [place] [address] Phone Care Team Providers Care Sixth Grade Teacher Name Role Phone Cheryle Davidson MD Primary Care Provider Allergies No known active allergies Medications atorvastatin (LIPITOR) 40 mg tablet Active clopidogreL (PLAVIX) 75 mg tablet Active pantoprazole (PROTONIX) 40 mg EC tablet Active amLODIPine (NORVASC) 5 mg tablet TAKE 1 TABLET BY MOUTH DAILY 90 tablet 3 5 Active carvediloL (COREG) 12.5 mg tablet Take 1 tablet (12.5 mg total) by mouth 2 (two) times a day with meals. 180 tablet 3 5 Active aspirin 81 mg EC tablet 025 Discontinued carvediloL (COREG) 25 mg tablet Take 12.5 mg by mouth 2 (two) times a day with meals. 4 025 Discontinued(Re order) Active Problems Problem Noted Date Diagnosed Date Stage 3 chronic kidney disease ([facility] V24, [facility] V28) 05/18/2025 Hyperlipidemia 05/18/2025 History of myocardial infarction 05/18/2025 Syncope 02/18/2023 Overview (08/12/2024): Episode of syncope that resulted in a emergency room visit and hospitalization at [facility] in the late 2021. Work-up including [...] 02/18/2023 Overview (08/12/2024): Presented initially with an OK in 2005. He had left arm pain [...] Encounters Date Type Department Care Team Description 05/21/2025 Telephone [facility] [address] [facility] [address] [place] [address] Svetlana Milian NP 05/19/2025 1:10 PM EDT Office Visit [facility] [address] [place] [address] Svetlana Milian, TRAIN OPERATIONS MANAGER Coronary artery disease involving n[place] coronary artery of nuiqsut heart without angina pectoris (Primary Dx) from Last 3 Months Social History Tobacco [...] Sign Reading Time Taken Comments Blood Pressure 134/80 05/19/2025 1:15 PM EDT Pulse 71 05/19/2025 1:15 PM EDT Temperature - - Respiratory Rate - - Oxygen Saturation 97% 05/19/2025 1:15 PM EDT Inhaled Oxygen Concentration - - Weight 89.4 kg (197 lb) 05/19/2025 1:15 PM EDT Height 175.3 cm (5' 9 ) 05/19/2025 1:15 PM EDT Body Mass Index 29.09 05/19/2025 1:15 PM EDT Plan of Treatment Health Maintenance Due Date Last Done Comments Zoster Vaccines (1 of 2) 2000 Abdominal Aortic Aneurysm (AAA) Screen 08/19/2022 Cholesterol Screening (Lipid Panel) 08/19/2022 Colorectal Cancer Screening: Colonoscopy 08/19/2022 Falls Risk Assessment 08/19/2022 Hepatitis C Screening 08/19/2022 Medicare Annual Wellness Visit 08/19/2022 Social Influencers of Health Screening 08/19/2022 Hypertension/CHF/CAD Annual BMP Blood Test 10/15/2023 Depression Screening 09/16/2024 COVID-19 Vaccine ( season) 2025 08/22/2022, 08/02/2021, 01/13/2021, Additional history exists Influenza Vaccine (#1) 2025 , 07/03/2022, 10/01/2019, Additional history exists RSV Immunization Adult Patients [...] patient's age to complete [place] [id number] [employer] Care Teams Sixth Grade Teacher Relationship Specialty Start Date End Date Cheryle Davidson MD [address] [facility] [place] [address] PCP - General 02/04/13
--- OUTSIDE RECORDS SUMMARY | 2025-06-11 14:14 | XMS_ITS | Patient Health Record ---
Author Organization [facility] Address [address] [place] [address] Care Team Providers Care Multi Care Technician Name Role Phone Cheryle Davidson MD Primary [...] Problem Status W/U Status Risk Notes Problem [id number] Colon cancer screening (Z12.11) Active confirmed Problem 963548051 Esophageal reflux (K21.9) Active confirmed Problem 04429352 Rectal bleeding (K62.5) Active confirmed Problem 564165682 Personal history of colonic polyps (Z86.010) Active confirmed Problem 03704027 Other hemorrhoids (K64.8) Active confirmed Problem 497443353 Abnormal liver function tests (R79.89) Active confirmed Problem 891219493 Long-term use of aspirin therapy (Z79.82) Active confirmed Plan Of Treatment Pending Test Test Name Order Date CERULOPLASMIN 12/17/2014 Future Test Test Name Order Date COLONOSCOPY 03/06/2012 UPPER GI ENDOSCOPY 10/01/2013 COLONOSCOPY 12/20/2022 Insurance Providers Payer Name Payer Address Payer Phone Subscriber Number Group Number Insured Name Patient Relationship to Insured Coverage Start Date Coverage End Date [facility] [address] [place] [address] [id number] [employer]O Self - patient is the insured Medical (General) History Medical History History ICD Code Colonoscopy 04/09/12, tubular adenoma x1, five-year followup GERD EGD 03/22/14, no H. pylori or Hastings 's esophagus Hypertension Coronary disease with history of [place] in S ept, 2005 and stent placement x3 Hyperlipidemia Fatty liver, liver biopsy 07/04/15 Right bundle branch block Surgical History Surgery Date(Month/Year) back surgery L-5 X2 2012 Hospitalization History Reason Date(Month/Year) dehydration 2021
--- OUTSIDE RECORDS SUMMARY | 2025-06-11 14:14 | XMS_ITS | Clinical Summary ---
Author Organization [facility] Facility Address [address] [place] [address], [place] [address] Care Team Providers Care Pediatric Immunologist Name Role Phone Phyllis Davidson MD Primary Care Provider [phone]- [phone] Social History Tobacco Use Types Packs/Day Years [...] patient's age to complete this topic [place] [address] Care Teams Pediatric Immunologist Relationship Specialty Start Date End Date Phyllis Davidson MD [address] [place] [address] PCP - General Internal Medicine 12/12/23
== END 2025-06-11 12:53 | disposition home or self-care (01) ==
LOC: HO.LAB 12:52
PROVIDERS: PCP Internal Medicine; Visit Provider Internal Medicine
DX: I10 Essential (primary) hypertension (principal); I25.10 Atherosclerotic heart disease of native coronary artery without angina pectoris; I48.0 Paroxysmal atrial fibrillation; E78.5 Hyperlipidemia, unspecified
CPT/HCPCS: 36415; 80048; 80061; 82306; 84450; 84460; 85025

== ENCOUNTER 2025-06-14 11:40 | Outpatient (AMB) | payer MEDICARE, SELFPAY ==
--- NOTE | 2025-06-14 11:45 | A.OFFPC_ITS ---
Vital Signs 06/14/25 11:47 Height 5 ft 9 in Weight 194 lb BMI 28.6 BP 104/70 Blood Pressure Location Rt brachial Position Sitting Pulse 63 Pulse Source Pulse Oximeter Pulse Oximetry (%) 97 Intake Visit Reasons: PE/OVERDUE- see comments Allergies No Known Allergies Allergy (Verified 06/14/25 12:11) Medication List - Last Reconciled 06/14/25 by Cheryle Davidson MD amlodipine 5 mg PO DAILY atorvastatin 80 mg PO DAILY 90 days carvedilol 25 mg PO BID clopidogrel 75 mg PO DAILY pantoprazole 40 mg PO DAILY Tobacco use date assessed: 12/23/24 Fall risk assessment: No Falls in past year Last assessed Fall Risk: 06/14/25 Dental Screening Dental Screen Date: 12/23/24 HPI PE/OVERDUE- see comments HPI Details 74 year-old male with hypertension, dysl ipidemia, paroxysmal atrial fibrillation, CKD , with impaired fasting glucose and GERD, coronary artery disease status post [place], here today for his physical exam. Blood pressure stable and controlled on amlodipine 5 mg daily together with carvedilol 25 mg 1 tablet twice a day. Currently takes pantoprazole 40 mg daily for his chronic gastroesophageal reflux disease. Takes atorvastatin 80 mg daily for control of his dyslipidemia, with latest fasting labs showing lipids within normal limits, vitamin-D level was deficient. Currently not taking any supplements. The patient had a colonoscopy in 2022, which revealed hyperplastic polyps. He stays active, just worked the [employer] meaning the [employer]. Walks several miles a day during that shift. Has been trying to adhere to healthy eating habits, does not smoke cigarettes but has an occasional marijuana when playing pool with friends. Denies any chest pain, no headache, no lightheadedness, shortness of breath or abdominal pain. Pantoprazole as needed for heartburn symptoms. Preventative care measures discussed include vaccinations for COVID-19, influenza, and pneumonia. The patient has not received the shingles vaccine and is not interested in obtaining it at this time. [facility] Medical History CKD (chronic kidney disease) stage 3, GFR 30-59 ml/min Nocturia History of syncope Hyperlipidemia LDL goal <70 Essential hypertension Right bundle branch block (RBBB) with left anterior fascicular block Impaired fasting glucose GERD (gastroesophageal reflux disease) History of [place] (myocardial infarction) Coronary artery disease Tubular adenoma of colon Surgical History Hx of wisdom tooth extraction Hx of colonoscopy H/O heart artery stent History of discectomy Family History Mother Essential hypertension History of myocardial infarction Father Substance use disorder Sister Substance use disorder Social History Housing: House Alcohol intake: current Alcohol intake frequency: 0-2 drinks per day Alcohol type: hard liquor Patient Tobacco Use Status: Former Tobacco user Years Smoked: 35 yrs e-Cigarette/Vaping Use: Never Used Substance Use Type: Marijuana Current occupational status: retired Cognitive needs: No Hearing needs: No Vision needs: Yes Questionnaire PHQ-9 Over the last 2 weeks, how often have you been bothered by any of the following problems? 1. Little interest or pleasure in doing things: not at all 2. Feeling down, depressed, or hopeless: not at all 3. Trouble falling or staying asleep, or sleeping too much: not at all 4. Feeling tired or having little energy: not at all 5. Poor appetite or overeating: not at all 6. Feeling bad about yourself - or that you are a failure or have let yourself or your family down: not at all 7. Trouble concentrating on things, such as reading the newspaper or watching television: not at all 8. Moving or speaking so slowly that other people could have noticed. Or the opposite - being so fidgety or restless that you have been moving around a lot more than usual: not at all 9. Thoughts that you would be better off or of hurting yourself in some way: not at all Total score: 0 Depression Screening Interpretation: Negative Depression Screening Done: Yes Source: Developed by Drs. Augustine Burton, Tiffanie Mullins, Vernon Casillas and colleagues, with an educational edilia from [employer]. Thrive Questionnaire Date Thrive assessed: 12/23/24 I am a: Patient What is your living situation today?: I have a steady place to live Within the past 12 months, did the food you bought not last and you didn't have the money to get more?: Never true Within the past 12 months, did you worry whether your food would run out before you got money to buy more?: Never true Do you have trouble paying for medicines?: No Do you have trouble getting transportation to medical appointments?: No Do you have trouble paying your heating and electricity bill?: No Do you have trouble taking care of your child, family member or friend?: No Do you have trouble with day-to-day activities such as bathing, preparing meals, shopping, managing finances, etc.?: No Are you currently unemployed and looking for a job?: No Are you interested in more education?: No THRIVE Score: 0 AUDIT C Alcohol Use Questionnaire (AUDIT-C) 1. How often do you have a drink containing alcohol?: 4 or more times a week 2. How many drinks containing alcohol do you have on a typical day when you are drinking?: 1 or 2 3. How often do you have six or more drinks on one occasion?: Never Total Score: 4 JENNIFFER-7 AMB Questionnaire JENNIFFER-7 Date JENNIFFER - 7 assessed: 12/23/24 Feeling nervous, anxious, or on edge: 0 = Not at all Not being able to stop or control worryin = Not at all Worrying too much about different things: 0 = Not at all Trouble relaxin = Not at all Being so restless that it is hard to sit still: 0 = Not at all Becoming easily annoyed or irritable: 0 = Not at all Feeling afraid as if something awful might happen: 0 = Not at all Total JENNIFFER-7 score (0-4 normal; 5-9 mild; 10-14 moderate; 15-21 severe): 0 Source: Developed by Drs. Augustine Burton, Tiffanie Mullins, Vernon Casillas and colleagues, with an educational edilia from [employer]. Review of Systems Const All systems reviewed & are unremarkable except as noted in HPI and below Eyes Details: Goes to the optical shop at [facility] in [place], cataracts noted. Wears progressive lenses ENT Details: Gets dental prophylaxis every six-months Physical exam (Primary Care) Vital Signs: Last Vital Signs Pulse 63 06/14/25 11:47 BP 104/70 06/14/25 11:47 Pulse Ox 97 06/14/25 11:47 BMI result Body Mass Index 28.6 Tobacco/Smoking Status: Tobacco use Status Tobacco use date assessed 12/23/24 06/14/25 11:46 Patient Tobacco Use Status Former Tobacco user 06/14/25 11:46 e-Cigarette/Vaping Use Never Used 06/14/25 11:46 PHQ-9: PHQ-9 Score PHQ-9: Total score 0 06/14/25 11:48 Depression Screening Interpretation: Negative Thrive Assessment: Date of Thrive Assessment Date Thrive assessed 12/23/24 06/14/25 11:46 Const General: no acute distress and alert Orientation/consciousness: patient oriented x3 HENMT Ears: external ears normal General nose exam: Normal external nose present Mouth: Normal oral and palatal mucosa present and moist mucous membranes Eyes General: appearance normal, both eyes and all related structures Conjunctivae: conjunctivae normal Sclerae: sclerae normal Pupils: Equal, round and reactive pupils present EOM: EOMs intact bilaterally Neck Neck: Yes full ROM, Yes no lymphadenopathy and Yes supple Resp Effort & Inspection: normal respiratory effort and able to speak in complete sentences Auscultation: clear to auscultation bilaterally Cardio Rate: regular rate Rhythm: regular rhythm Heart sounds: S1 normal heart sound present and S2 normal heart sound present GI Palpation (GI): Soft to palpation, nontender and no masses Auscultation: normal bowel sounds Male General Exam: Yes normal external exam Back/Spine/Pelvis Back: No back tenderness Skin General skin exam: no rashes or lesions noted Neuro General: patient oriented x3, gait normal, tone normal, moves all extremities and no focal motor deficits Cranial nerves: Yes Equal, round and reactive pupils present Cognition (Neuro): normal cognition Extrem General: Yes full ROM, Yes no joint enlargement, Yes no clubbing, cyanosis or edema and Yes no calf tenderness Psych Appearance: grossly normal and well kempt Mental Status: mental status grossly normal Speech and movement: Normal speech and movement present Affect: normal affect Results Reviewed Results Reviewed: [place]: Brayden Mackey Age/Sex: 74/M : 1950 Unit#: [id number] Attend Dr: Cheryle Davidson MD Re06/11/25 Status: DEP [facility]: SPEC : [id number] SHERI: 06/11/25 STATUS: COMP REQ : [id number] RECD: 06/11/[address]: Cheryle Davidson MD COMP: 06/11/25 ENTERED: 06/11/[address] [facility] [address]: ORDERED: CBC Auto Diff Test Result Flag Reference WBC 7.0 4.8-10.8 X10*3/uL RBC 4.72 4.60-5.80 X10*6/uL HGB 14.4 14.0-18.0 g/dl HCT 42.0 42.0-52.0 % MCV 89.0 80.0-98.0 fL MCH 30.5 27.0-33.0 pg MCHC 34.3 31.0-36.0 g/dl RDW 15.0 11.0-16.0 % PLT 256 160-400 X10*3/uL MPV 9.7 9.4-12.4 fL Neut Pct Auto 61.6 45-73 % ImGran Pct Auto 0.6 H 0.0-0.4 % Lymp Pct Auto 22.1 20-40 % [place] Pct Auto 13.6 H 2-11 % Eos Pct Auto 1.4 0-4 % Baso Pct Auto 0.7 0-2 % NRBC Pct Auto 0.0 0.0-0.2 /100WBC ANC Neut Abs # 4.3 2.0-8.3 x10*3/uL ImGran Abs Auto 0.04 H 0.00-0.03 X10*3/uL Lymph Abs Auto 1.5 1.2-4.9 X10*3/uL [place] Abs Auto 1.0 0.1-1.2 X10*3/uL Eos Abs Auto 0.1 0.0-0.4 X10*3/uL Baso Abs Auto 0.1 0.0-0.2 X10*3/uL NRBC Abs Auto 0.000 0.0-0.012 X1 0*3/uL [place]: Brayden Mackey Age/Sex: 74/M : 1950 Unit#: [id number] Attend Dr: Cheryle Davidson MD Re06/11/25 Status: DEP REF Location: .LAB Disch: SPEC : [id number] SHERI: 06/11/25 STATUS: COMP REQ : [id number] RECD: 06/11/25-[address]: Cheryle Davidson MD COMP: 06/11/25-1415 ENTERED: 06/11/25-[address]: ORDERED: Met Prof Fast, AST, ALT, Lipid Panel, Vitamin D 25-OH Test Result Flag Reference Sodium 137 135-145 mmol/L Potassium 4.2 3.3-5.1 mmol/L CL 103 96-108 mmol/L CO2 26 22-29 mmol/L Gap 12 12-20 BUN 19 H 9-16 mg/dL Creat 1.63 H 0.5-1.4 mg/dL eGFR 42 Chronic Kidney Disease: Estimated GFR < 60 mL/min/1.73m2 Severe Kidney Disease: Estimated GFR < 15 mL/min/1.73m2 FBS 108 H 60-99 mg/dL A fasting glucose from 100-125 mg/dl is considered im paired (pre-diabetes). CA 9.2 8.4-10.2 mg/dL AST (GOT) 46 H 5-37 U/L ALT (GPT) 30 0-40 U/L Triglyceride 61 <150 mg/dL Desirable Triglyceride: less than 150 mg/dL Borderline High Triglyceride 150-199 mg/dL High Triglyceride: 200-499 mg/dL Very High Triglyceride: greater than or equal to 5OO mg/dL Cholesterol 144 <200 mg/dL Desirable Cholesterol: less than 200 mg/dL Borderline High Cholesterol: 200-239 mg/dL High Cholesterol: greater than 239 mg/dL LDL Calculated 77 <100 mg/dL Desirable LDL: less than 100 mg/dL Near Optimal/Above Optimal LDL: 110-129 mg/dL Borderline High LDL: 130-159 mg/dL High LDL: 160-189 mg/dL Very High LDL: greater than or equal to 190 mg/dL HDL 55 >40 mg/dL Desirable HDL: greater than 40 mg/dL Note: This HDL assay may give artificially low results in patients with liver disease. Vitamin D 25-OH 27.8 L >30 ng/mL Health Based Reference Values* < 20 ng/mL Deficient 20-30 ng/mL Insufficient > 30 ng/mL Sufficient Coding Level of Care Code Est Pt Prev Care >65y(23304) Diagnoses Annual visit for general adult medical examination with abnormal findings Z00. Vitamin D deficiency E55.9 Coronary artery disease involving [place] coronary artery of [place] heart without angina pectoris I25.10 Coronary Disease-Associated Artery/Lesion type: [place] artery [place] vs. transplanted heart: [place] heart Associated angina: without angina GERD (gastroesophageal reflux disease) K21.9 Essential hypertension I10 Hyperlipidemia LDL goal <70 E78.5 CKD (chronic kidney disease) stage 3, GFR 30-59 ml/min N18.30 Assessment & Plan Assessment & Plan (1) Annual visit for general adult medical examination with abnormal findings: Code(s): Z00. - Encounter for general adult medical examination with abnormal findings Plan: Recent fasting labs results reviewed with patient. Gets regular dental visit every 6 months and regular eye exams, at least every 2 years. Take adequate calcium in diet and placed on high-dose vitamin-D 3 replacement, in addition to weight-bearing exercises to help maintain good muscle tone and weight control. Instructed to do self-testicular exam check for any mass. Up-to-date with his screening colonoscopy done in 2022 showing hyperplastic polyps. Up-to-date with his vaccines, reminded to get yearly flu shot but does not want to get the shingles vaccine. (2) Vitamin D deficiency: Code(s): E55.9 - Vitamin D deficiency, unspecified Category: Medical Plan: Prescription sent for cholecalciferol 62960 units per capsule to take once a week for the next 3 months patient advised to continue taking vitamin-D 3 [id number] at 2000 units daily once he finishes taking the prescription. (3) Coronary artery disease: Code(s): I25.10 - Atherosclerotic heart disease of [place] coronary artery without angina pectoris Category: Medical Qualifiers: Coronary Disease-Associated Artery/Lesion type: [place] artery [place] vs. transplanted heart: [place] heart Associated angina: without angina Qualified Code(s): I25.10 - Atherosclerotic heart disease of [place] coronary artery without angina pectoris Plan: Followed by cardiology every six-months currently on carvedilol, amlodipine and clopidogrel. (4) GERD (gastroesophageal reflux disease): Code(s): K21.9 - Gastro-esophageal reflux disease without esophagitis Category: Medical Plan: Takes pantoprazole as needed. (5) Essential hypertension: Code(s): I10 - Essential (primary) hypertension Category: Medical Plan: Blood pressure at goal of less than 130/80. Continue with current medication. Reinforced importance of following a low sodium diet, getting regular exercise, and lowering stress levels. (6) Hyperlipidemia LDL goal <70: Code(s): E78.5 - Hyperlipidemia, unspecified Category: Medical Plan: Recent fasting lipids are within normal limits, continued on atorvastatin 80 mg daily. Repeat another fasting lipid panel in six-month (7) CKD (chronic kidney disease) stage 3, GFR 30-59 ml/min: Code(s): N18.30 - Chronic kidney disease, stage 3 unspecified Category: Medical Plan: Stable, avoid NSAIDs. Orders: Orders Basic Metabolic Panel Fasting 12/15/25 E55.9 - Vitamin D deficiency, unspecified, E78.5 - Hyperlipidemia, unspecified, I10 - Essential (primary) hypertension, I25.10 - Atherosclerotic heart disease of [place] coronary artery without angina pectoris, I48.0 - Paroxysmal atrial fibrillation, K21.9 - Gastro- esophageal reflux disease without esophagitis, N18.30 - Chronic kidney disease, stage 3 unspecified, Z00.01 - Encounter for general adult medical examination with abnormal findings Lipid Panel 12/15/25 E55.9 - Vitamin D deficiency, unspecified, E78.5 - Hyperlipidemia, unspecified, I10 - Essential (primary) hypertension, I25.10 - Atherosclerotic heart disease of [place] coronary artery without angina pectoris, I48.0 - Paroxysmal atrial fibrillation, K21.9 - Gastro-esophageal reflux disease without esophagitis, N18.30 - Chronic kidney disease, stage 3 unspecified, Z00.01 - Encounter for general adult medical examination with abnormal findings Vitamin D 25-OH Total 12/15/25 E55.9 - Vitamin D deficiency, unspecified, E78.5 - Hyperlipidemia, unspecified, I10 - Essential (primary) hypertension, I25.10 - Atherosclerotic heart disease of [place] coronary artery without angina pectoris, I48.0 - Paroxysmal atrial fibrillation, K21.9 - Gastro-esophageal reflux disease without esophagitis, N18.30 - Chronic kidney disease, stage 3 unspecified, Z00.01 - Encounter for general adult medical examination with abnormal findings Aspartate Amino Transferase 12/15/25 E55.9 - Vitamin D deficiency, unspecified, E78.5 - Hyperlipidemia, unspecified, I10 - Essential (primary) hypertension, I25.10 - Atherosclerotic heart disease of [place] coronary artery without angina pectoris, I48.0 - Paroxysmal atrial fibrillation, K21.9 - Gastro-esophageal reflux disease without esophagitis, N18.30 - Chronic kidney disease, stage 3 unspecified, Z00.01 - Encounter for general adult medical examination with abnormal findings Alanine Aminotransferase 12/15/25 E55.9 - Vitamin D deficiency, unspecified, E78.5 - Hyperlipidemia, unspecified, I10 - Essential (primary) hypertension, I25.10 - Atherosclerotic heart disease of [place] coronary artery without angina pectoris, I48.0 - Paroxysmal atrial fibrillation, K21.9 - Gastro-esophageal reflux disease without esophagitis, N18.30 - Chronic kidney disease, stage 3 unspecified, Z00.01 - Encounter for general adult medical examination with abnormal findings Medications: New cholecalciferol (vitamin D3) 1,250 mcg PO QWEEK 13 caps 0RF 3 months E55.9 - Vitamin D deficiency, unspecified Refilled atorvastatin 80 mg PO DAILY 90 tabs 1RF 90 days E78.5 - Hyperlipidemia, unspecified pantoprazole 40 mg PO DAILY 90 tabs 1RF
[2025-06-14 11:47] VITALS: BP 104/70; PULSE 63; O2SAT 97; BMI 28.6
--- OUTSIDE RECORDS SUMMARY | 2025-06-14 13:09 | XMS_ITS | Clinical Summary ---
Author Organization [facility] Facility Address [address] [place] [address], [place] [address] Care Team Providers Care Dietetics Teacher Name Role Phone Phyllis Davidson MD Primary Care Provider [phone] Social History Tobacco Use Types Packs/Day Years [...] patient's age to complete this topic [place] [address] Care Teams Dietetics Teacher Relationship Specialty Start Date End Date Phyllis Davidson MD [address] [place] [address] PCP - General Internal Medicine 12/12/23
--- OUTSIDE RECORDS SUMMARY | 2025-06-14 13:12 | XMS_ITS | Patient Health Record ---
Author Organization [facility] Address [address] [place] [address] Care Team Providers Care Server Systems Administrator Name Role Phone Cheryle Davidson MD Primary [...] Problem Status W/U Status Risk Notes Problem [id number] Colon cancer screening (Z12.11) Active confirmed Problem 241919262 Esophageal reflux (K21.9) Active confirmed Problem 24790296 Rectal bleeding (K62.5) Active confirmed Problem 384966986 Personal history of colonic polyps (Z86.010) Active confirmed Problem 79575436 Other hemorrhoids (K64.8) Active confirmed Problem 130830324 Abnormal liver function tests (R79.89) Active confirmed Problem 390254410 Long-term use of aspirin therapy (Z79.82) Active confirmed Plan Of Treatment Pending Test Test Name Order Date CERULOPLASMIN 12/17/2014 Future Test Test Name Order Date COLONOSCOPY 03/06/2012 UPPER GI ENDOSCOPY 10/01/2013 COLONOSCOPY 12/20/2022 Insurance Providers Payer Name Payer Address Payer Phone Subscriber Number Group Number Insured Name Patient Relationship to Insured Coverage Start Date Coverage End Date [facility] [address] [place] [phone] [id number] [place] CAO Self - patient is the insured Medical (General) History Medical History History ICD Code Colonoscopy 04/09/12, tubular adenoma x1, five-year followup GERD EGD 03/22/14, no H. pylori or [place] 's esophagus Hypertension Coronary disease with history of [place] in S ept, 2005 and stent placement x3 Hyperlipidemia Fatty liver, liver biopsy 07/04/15 Right bundle branch block Surgical History Surgery Date(Month/Year) back surgery L-5 X2 2012 Hospitalization History Reason Date(Month/Year) dehydration 2021
== END 2025-06-14 12:36 | disposition home or self-care (01) ==
LOC: HO.HMCC 11:41
PROVIDERS: PCP Internal Medicine; Visit Provider Internal Medicine
DX: Z00.01 Encounter for general adult medical examination with abnormal findings (principal); I12.9 Hypertensive chronic kidney disease with stage 1 through stage 4 chronic kidney disease, or unspecified chronic kidney disease; N18.30 Chronic kidney disease, stage 3 unspecified; E55.9 Vitamin D deficiency, unspecified; I25.10 Atherosclerotic heart disease of native coronary artery without angina pectoris; K21.9 Gastro-esophageal reflux disease without esophagitis; E78.5 Hyperlipidemia, unspecified

== ENCOUNTER → 2025-06-14 11:40 | Outpatient (BNVA) | payer MEDICARE, SELFPAY | PROVIDERS: PCP Internal Medicine; Visit Provider Internal Medicine | DX: Z00.01 Encounter for general adult medical examination with abnormal findings (principal); I12.9 Hypertensive chronic kidney disease with stage 1 through stage 4 chronic kidney disease, or unspecified chronic kidney disease; N18.9 Chronic kidney disease, unspecified; E78.5 Hyperlipidemia, unspecified; I48.91 Unspecified atrial fibrillation; R73.01 Impaired fasting glucose; K21.9 Gastro-esophageal reflux disease without esophagitis; I25.10 Atherosclerotic heart disease of native coronary artery without angina pectoris; I25.2 Old myocardial infarction; E55.9 Vitamin D deficiency, unspecified; N18.30 Chronic kidney disease, stage 3 unspecified; Z79.899 Other long term (current) drug therapy | CPT/HCPCS: 96127; 99397 ==

== ENCOUNTER 2025-07-22 13:24 | Outpatient (AMB) | payer MEDICARE, SELFPAY ==
--- NOTE | 2025-07-22 13:33 | MHC.OFFWIV ---
Intake Vital Signs 07/22/25 13:38 Height 5 ft 9 in Weight 200 lb BMI 29.5 BP 138/72 Blood Pressure Location Lt brachial Position Sitting Pulse 76 Pulse Source Pulse Oximeter Temp 98.2 F Temp Source Oral Pulse Oximetry (%) 97 Oxygen Delivery Method Room Air Intake Visit Reasons: EP-rt side nipple is tender Intake Note: pt presents with right nipple pain with palpation and sensitivity with light brushing against x1 week and worsening over that time. denies discharge/injury or any lumps that he has noticed Patient Tobacco Use Status: Former Tobacco user Allergies No Known Allergies Allergy (Verified 07/22/25 13:39) Do you need a note to return to daycare/school/sports/work: No HPI HPI Comments History of Present Illness Details History of Present Illness - The patient is a 74-year-old male presenting with right breast tenderness and nipple pain for one week. - The tenderness in the right breast started a little over a week ago and has been progressively worsening. - The patient reports that the right breast feels harder compared to the left, although both feel the same otherwise. - There is no nipple discharge or skin changes noted by the patient. - No family history of breast cancer is reported. - Denies trauma to the area. Review of Systems - Breast: Reports tenderness in the right breast, denies nipple discharge or skin changes. All systems reviewed and are unremarkable except as noted in HPI Physical Exam General: Cooperative, healthy appearing, comfortable, no acute distress and well developed Orientation: Patient oriented x3 Limitations: No limitations Head: Normal to inspection Ears: Hearing grossly normal bilaterally Nose: Normal External nose present Face and sinus: Normal facial exam Eyes: Appearance normal, both eyes and all related structures Neck: Normal visual inspection and Yes full ROM Chest: Right breast more full than left in the area surrounding the nipple. No skin changes of right breast, no nipple disharge, TTP of nipple on right breast. no lumps noted upon palpation. no peau d'orange noted on exam. Respiratory: Normal respiratory effort and able to speak in complete sentences. Skin: No rashes or lesions noted Neuro: Patient oriented x3 Extremities: Normal to inspection [facility] Medical History CKD (chronic kidney disease) stage 3, GFR 30-59 ml/min Nocturia History of syncope Hyperlipidemia LDL goal <70 Essential hypertension Right bundle branch block (RBBB) with left anterior fascicular block Impaired fasting glucose GERD (gastroesophageal reflux disease) History of [place] (myocardial infarction) Coronary artery disease Tubular adenoma of colon Surgical History Hx of wisdom tooth extraction Hx of colonoscopy H/O heart artery stent History of discectomy Family History Mother Essential hypertension History of myocardial infarction Father Substance use disorder Sister Substance use disorder Social History Housing: House Alcohol intake: current Alcohol intake frequency: 0-2 drinks per day Alcohol type: hard liquor Patient Tobacco Use Status: Former Tobacco user Years Smoked: 35 yrs e-Cigarette/Vaping Use: Never Used Substance Use Type: Marijuana Current occupational status: retired Cognitive needs: No Hearing needs: No Vision needs: Yes Physical Exam Vital Signs: Last Vital Signs Temp 98.2 F 07/22/25 13:38 Pulse 76 07/22/25 13:38 BP 138/72 07/22/25 13:38 Pulse Ox 97 07/22/25 13:38 Oxygen Delivery Method Room Air 07/22/25 13:38 BMI result Body Mass Index 29.5 Assessment & Plan Assessment & Plan (1) Nipple pain: Code(s): N64.4 - Mastodynia Plan: Patient was informed and verbally consented to the use of an ambient scribe for clinic note documentation during this visit. Right nipple tenderness and fullness of breast - Stat mammogram ordered bil[facility]. - Ultrasound to evaluate the right breast for any underlying pathology. (2) Fullness of breast: Code(s): N64.89 - Other specified disorders of breast Plan: as above Orders: Orders US breast RT limited Today N64.4 - Mastodynia, N64.89 - Other specified disorders of breast MM diagnostic mammo BI Today N64.4 - Mastodynia, N64.89 - Other specified disorders of breast Coding Level of Care Code Est Pt Level 3 (31402) Diagnoses Nipple pain N64.4 Fullness of breast N64.89
[2025-07-22 13:38] VITALS: BP 138/72; PULSE 76; TEMP 36.8; O2SAT 97; BMI 29.5
== END 2025-07-22 14:39 | disposition home or self-care (01) ==
PROVIDERS: PCP Internal Medicine; Visit Provider Physician Assistant
DX: N64.4 Mastodynia (principal); N64.89 Other specified disorders of breast

== ENCOUNTER → 2025-07-22 13:24 | Outpatient (BNVA) | payer MEDICARE, SELFPAY | PROVIDERS: PCP Internal Medicine; Visit Provider Physician Assistant | DX: N64.4 Mastodynia (principal); N64.89 Other specified disorders of breast | CPT/HCPCS: 99212 ==